=== PATIENT | male | born 1955 ===

== ENCOUNTER 2018-01-19 17:29 | Inpatient (IN) | payer MEDICARE, OTHER ==
[2018-01-19 17:29] VITALS: BMI 22.4
[2018-01-19] MEDS ORDERED: Sodium Chloride 0.9% 1,000 ML IV STA (17:58)
[2018-01-19] MEDS ORDERED: levoFLOXacin 750 mg in D5W 150 ML BAG IVPB STA (18:19)
[2018-01-19] MEDS ORDERED: Cefepime 2 GM in Sodium Chloride 0.9% 100 ML IVPB STA (18:20)
[2018-01-19 18:26] LABS: BASO # 0.1 K/uL (0.0-0.2); BASO % 0.5 % (0.0-2.0); EOS % 0.1 % (0.0-4.0); HEMOGLOBIN 12.7 g/dL (12.0-18.0); LYMPH # 1.3 K/uL (1.0-4.3); LYMPH % 11.9 % (20.0-40.0); MEAN CELL VOLUME 88.2 fl (80.0-94.0); MEAN CORPUSCULAR HEMOGLOBIN 28.6 pg (27.0-31.0); MEAN CORPUSCULAR HGB CONC 32.4 g/dL (33.0-37.0); MEAN PLATELET VOLUME 10.1 fl (7.2-11.7); MONO # 0.6 K/uL (0.0-0.8); MONO % 5.2 % (0.0-10.0); NEUT # 8.8 K/uL (1.8-7.0); NEUT % 82.3 % (50.0-75.0); RBC 4.44 Mil/uL (4.40-5.90); RED CELL DISTRIBUTION WIDTH 16.9 % (11.5-14.5); WHITE BLOOD COUNT 10.7 K/uL (4.8-10.8)
[2018-01-19 18:28] LABS: INR 1.1; PROTHROMBIN TIME 12.2 Seconds (9.8-13.1)
[2018-01-19] MEDS ORDERED: levoFLOXacin 750 mg in D5W 750 MG/150 ML BAG IVPB ONE (18:38)
--- NOTE | 2018-01-19 18:39 | ED PDOC ---
HPI: General Adult Time Seen by Provider: 01/19/18 17:40 Chief Complaint (Nursing): Shortness Of Breath Chief Complaint (Provider): Fever History Per: Other (Correction Staff) History/Exam Limitations: no limitations Onset/Duration Of Symptoms: Days (x4) Current Symptoms Are (Timing): Still Present Additional Complaint(s): 63 y/o male with a PMHx of dementia and HTN brought to the ED for decreased appetite and fever. Unable to obtain history from patient due to severe dementia. All history was obtained from Correction. Staff report patient has had a decreased appetite for four days and was found to have pneumonia on an XR and fever today. PMD: Alpesh Ontiveros Past Medical History Reviewed: Historical Data, Nursing Documentation, Vital Signs Vital Signs: Last Vital Signs Temp 97.9 F 01/20/18 15:31 Pulse 81 01/20/18 15:31 Resp 16 01/20/18 15:31 BP 112/65 01/20/18 15:31 Pulse Ox 98 01/20/18 15:31 - Medical History PMH: Alzheimer's Disease, Anxiety, Diabetes Denies: Chronic Kidney Disease - Surgical History Surgical History: No Surg Hx - Family History Family History: States: Unknown Family Hx - Living Arrangements Living Arrangements: Correction/Assist Lvng - Social History Current smoker - smoking cessation education provided: No - Immunization History Hx Tetanus Toxoid Vaccination: No (UNKNOWN) Hx Influenza Vaccination: No (UNKNOWN) Hx Pneumococcal Vaccination: No (UNKNOWN) - Home Medications Home Medications: Ambulatory Orders Medication Instructions Recorded Enalapril Maleate [Vasotec] 2.5 mg PO DAILY 12/02/16 Lovastatin 40 mg PO HS 12/02/16 metFORMIN [glucOPHAGE] 850 mg PO BID 12/02/16 Acetaminophen [Tylenol 325mg tab] 650 mg PO BID 01/19/18 Acetaminophen [Tylenol 325mg tab] 650 mg PO Q4 PRN 01/19/18 Albuterol/Ipratropium [Duoneb 3 3 ml IH Q8 01/19/18 mg/0.5 mg (3 ml) UD] Ascorbic Acid [Vitamin C 500 mg 500 mg PO DAILY 01/19/18 Tab] Bisacodyl [Dulcolax] 10 mg UT DAILY PRN 01/19/18 Donepezil [Aricept] 10 mg PO DAILY 01/19/18 Magnesium Hydroxide [Milk Of 30 ml PO HS PRN 01/19/18 Magnesia] Mirtazapine [Remeron] 7.5 mg PO HS 01/19/18 Multimineral/Multivitamin 1 tab PO DAILY 01/19/18 [Therapeutic-M Tab] guaiFENesin [Robitussin] 10 ml PO Q4 PRN 01/19/18 - Allergies Allergies/Adverse Reactions: Allergies Allergy/AdvReac Type Severity Reaction Status Date / Time No Known Allergies Allergy Verified 01/19/18 17:39 Review of Systems Review Of Systems: ROS cannot be obtained secondary to pt's inabilty to answer questions. Physical Exam - Reviewed Nursing Documentation Reviewed: Yes Vital Signs Reviewed: Yes - Physical Exam Appears: Negative for: Well (chronically ill, much older than given age and febrile), Non-toxic (cachectic) Head Exam: Positive for: ATRAUMATIC, NORMOCEPHALIC Skin: Positive for: Warm, Dry. Negative for: Normal Color (Tenting of skin on abdomen) Eye Exam: Positive for: EOMI, PERRL ENT: Positive for: Pharynx Is (clear), Other (mucus membranes dry) Neck: Positive for: Painless ROM, Supple Cardiovascular/Chest: Positive for: Regular Rate, Rhythm, Tachycardia. Negative for: Murmur Respiratory: Positive for: Normal Breath Sounds. Negative for: Respiratory Distress Gastrointestinal/Abdominal: Positive for: Bowel Sounds, Soft. Negative for: Tenderness Back: Positive for: Normal Inspection, Other (very small superficial sacral decupidis) Extremity: Positive for: Other (Poor muscle build with diffuse contractures). Negative for: Pedal Edema Lymphatic: Negative for: Adenopathy Neurologic/Psych: Positive for: Alert, Other (Awake, localizing pain equally in all extremities, non-verbal). Negative for: Oriented, Motor/Sensory Deficits - Laboratory Results Result Diagrams: 01/20/18 05:23 01/20/18 05:23 - ECG O2 Sat by Pulse Oximetry: 95 (RA) Pulse Ox Interpretation: Normal Medical Decision Making Medical Decision Making: Time: 1814 Plan: -- VBG -- EKG -- CMP -- Lipase -- Magnesium -- Phosphorus -- Troponin I -- CBC with differentials -- PTT -- Prothrombin Time -- CXR Portable -- Levaquin 750 mg IVPB -- Maxipime 2 gm Sodium Chloride 0.9% 100 ml IVPB -- Sodium Chloride 1000 mls/hr -- Tylenol 650 mg UT -- Blood Culture -- Urine Culture -- Case Operator -- IV Insertion -- Glucose, Blood, POC -- Jimenez -- Urinalysis Labs demonstrate marked hypernatremia and dehydration. CXR demonstrates pneumonia Calculated infusion for correction and 0.45NS IV infusions ordered. IV antibiotics ordered. DW Dr Ontiveros PMD Scribe Attestation: Documented by Vadim Mauricio acting as a scribe for Dr. Bonnie Nixon. Provider Scribe Attestation: All medical record entries made by the Scribe were at my direction and personally dictated by me. I have reviewed the chart and agree that the record accurately reflects my personal performance of the history, physical exam, medical decision making, and the department course for this patient. I have also personally directed, reviewed, and agree with the discharge instructions and disposition. Disposition - Clinical Impression Clinical Impression: Hypernatremia, Dehydration with hypernatremia, Pneumonia - Disposition Disposition Time: 19:00 Condition: FAIR - Pt Status Changed To: Hospital Disposition Of: Inpatient - Admit Certification Admit to Inpatient:: After my assessment, the patient will require hospitalization for at least two midnights. This is because of the severity of symptoms shown, intensity of services needed, and/or the medical risk in this patient being treated as an outpatient. - POA Present On Arrival: Falls Or Trauma (risk), Pressure Ulcer
[2018-01-19 18:48] LABS: VENOUS BLOOD GAS BASE EXCESS 8.8 mmol/L (0.0-2.0); VENOUS BLOOD GAS PCO2 51 mmHg (40-60); VENOUS BLOOD GAS PO2 38 mm/Hg (30-55); VENOUS BLOOD PH 7.44 (7.32-7.43)
[2018-01-19 18:59] LABS: SQUAMOUS EPITHIAL < 1 /hpf (0-5); URINE BILIRUBIN NEGATIVE (NEGATIVE); URINE BLOOD MODERATE (NEGATIVE); URINE CLARITY SLIGHTY-CLOUDY (Clear); URINE COLOR YELLOW (YELLOW); URINE GLUCOSE (UA) NEG (Normal); URINE LEUKOCYTE ESTERASE NEG Leu/uL (Negative); URINE PROTEIN 100 mg/dL (NEGATIVE)
[2018-01-19 19:01] LABS: ALBUMIN 3.8 g/dL (3.5-5.0); ALT/SGPT 19 U/L (21-72); AST/SGOT 20 U/L (17-59); BLOOD UREA NITROGEN 40 mg/dl (9-20); CALCIUM 9.9 mg/dL (8.4-10.2); GFR AFRICAN-AMERICAN > 60; GFR NON-AFRICAN AMERICAN > 60; LIPASE 58 U/L (23-300)
[2018-01-19] MEDS ORDERED: Sodium Chloride 0.45% 1,000 ML IV STA (19:21)
[2018-01-20] MEDS: Sodium Chloride 0.45% 1,000 ML IV SCH ×3 (02:31→22:07)
[2018-01-20 05:35] LABS: HEMOGLOBIN 9.3 g/dL (12.0-18.0); MEAN CELL VOLUME 90.1 fl (80.0-94.0); MEAN CORPUSCULAR HEMOGLOBIN 28.4 pg (27.0-31.0); MEAN CORPUSCULAR HGB CONC 31.6 g/dL (33.0-37.0); RBC 3.28 Mil/uL (4.40-5.90); RED CELL DISTRIBUTION WIDTH 17.2 % (11.5-14.5); WHITE BLOOD COUNT 12.5 K/uL (4.8-10.8)
[2018-01-20 05:43] LABS: INR 1.2; PROTHROMBIN TIME 13.7 Seconds (9.8-13.1)
[2018-01-20 05:46] LABS: PARTIAL THROMBOPLASTIN TIME 41.6 Seconds (25.6-37.1)
[2018-01-20 05:53] LABS: ALB/GLOB RATIO 0.9 (1.0-2.1); ALBUMIN 2.9 g/dL (3.5-5.0); ALT/SGPT 18 U/L (21-72); AST/SGOT 17 U/L (17-59); BLOOD UREA NITROGEN 30 mg/dl (9-20); CALCIUM 8.6 mg/dL (8.4-10.2); GFR AFRICAN-AMERICAN > 60; GFR NON-AFRICAN AMERICAN > 60; HDL CHOLESTEROL 20 MG/DL (30-70)
[2018-01-20 06:02] LABS: T4 6.87 ug/dl (5.5-11.0)
[2018-01-20 06:33] LABS: LDL CHOLESTEROL < 30 mg/dL (0-129)
--- NOTE | 2018-01-20 07:21 | CARD ---
APPROVED REPORT Date of service: 01/19/2018 <Conclusion> Sinus tachycardia Nonspecific ST and T wave abnormality Abnormal ECG
[2018-01-20] MEDS ORDERED: Albuterol-Ipratrop 3 mg / 0.5 (3 ml) UD IH SCH (08:00)
--- NOTE | 2018-01-20 08:06 | RAD ---
Date of service: 01/19/2018 HISTORY: sepsis COMPARISON: No prior. FINDINGS: LUNGS: Limited patchy infiltrates identified in the bilateral basilar lung zones right greater than left. PLEURA: No significant pleural effusion identified, no pneumothorax apparent. CARDIOVASCULAR: Normal. OSSEOUS STRUCTURES: No significant abnormalities. VISUALIZED UPPER ABDOMEN: Normal. OTHER FINDINGS: None. IMPRESSION: Limited bilateral basilar infiltrates, right greater than left.
[2018-01-20] MEDS: Albuterol-Ipratrop 3 mg / 0.5 (3 ml) UD INH SCH ×3 (08:19→19:22)
[2018-01-20] MEDS: Insulin Regular 100 units/ml SC SCH ×4 (08:45→22:06)
[2018-01-20] MEDS ORDERED: Sodium Chloride 3% for Inhalation 4 ML VIAL.NEB IH PRN (09:19)
[2018-01-20] MEDS: Enoxaparin 40 mg Syringe SC SCH (14:07)
[2018-01-20] MEDS: Azithromycin 500 MG in Sodium Chloride 0.9% 250 ML IVPB SCH (14:09)
--- NOTE | 2018-01-20 14:44 | CP.PCM.HP ---
History of Present Illness - History of Present Illness History of Present Illness: CC: SOB. 63 y/o M, resident at [facility], Hx Dentia/Alzheimers, brought on 02/09/18 to ER [facility] to be evaluated gradually increased moderate SOB x 4 days [employer], no cough associated but fever and lack of appetite with no relief of symptoms. [facility]. Worsening symptom: Found with PNA on Chest X-R while in NH. Aggravated factor: Limited medical Hx. Non verbal baseline. No: Chills, n/v/d, abdominal pain, syncope, fall/trauma, CP, palpitations, sick contact. CXR: + bibasilar infiltrates R>L. Present on Admission - Present on Admission Any Indicators Present on Admission: No Review of Systems - Review of Systems Systems not reviewed;Unavailable: Acuity of Condition, Dementia (Non -verbal) Past Patient History - Past Medical History & Family History Past Medical History?: Yes Pertinent Family History: Unknown - Past Social History Smoking Status: Never Smoked Alcohol: None Drugs: Denies Home Situation {Lives}: [facility] - CARDIAC Hx Cardiac Disorders: Yes Hx Hypertension: Yes - PULMONARY Hx Respiratory Disorders: No - NEUROLOGICAL Hx Neurological Disorder: Yes Hx Alzheimer's Disease: Yes Hx Dementia: Yes - HEENT Hx HEENT Problems: No - RENAL Hx Chronic Kidney Disease: No - ENDOCRINE/METABOLIC Hx Endocrine Disorders: Yes Hx Diabetes Mellitus Type 2: Yes - HEMATOLOGICAL/ONCOLOGICAL Hx Blood Disorders: No Hx AIDS: No Hx Human Immunodeficiency Virus (HIV): No - INTEGUMENTARY Hx Dermatological Problems: No - MUSCULOSKELETAL/RHEUMATOLOGICAL Hx Musculoskeletal Disorders: No Hx Falls: No - GASTROINTESTINAL Hx Gastrointestinal Disorders: No - GENITOURINARY/GYNECOLOGICAL Hx Genitourinary Disorders: Yes Hx Incontinence: Yes - PSYCHIATRIC Hx Psychophysiologic Disorder: Yes Hx Anxiety: Yes Hx Substance Use: No - SURGICAL HISTORY Hx Surgeries: No (UNKNOWN) - ANESTHESIA Hx Anesthesia: No (UNKNOWN) Meds Allergies/Adverse Reactions: Allergies Allergy/AdvReac Type Severity Reaction Status Date / Time No Known Allergies Allergy Verified 01/19/18 17:39 Physical Exam - Constitutional Appears: Chronically Ill - Head Exam Head Exam: NORMAL INSPECTION - Eye Exam Eye Exam: PERRL - ENT Exam ENT Exam: Normal Exam - Neck Exam Neck exam: Positive for: Normal Inspection - Respiratory Exam Respiratory Exam: Decreased Breath Sounds (at bases) - Cardiovascular Exam Cardiovascular Exam: REGULAR RHYTHM - GI/Abdominal Exam GI & Abdominal Exam: Normal Bowel Sounds, Soft - Exam Additional comments: Lina Monica catheter - Extremities Exam Additional comments: All extremities contracted - Back Exam Additional comments: Sacral pressure ulcer unstagable - Neurological Exam Additional comments: Eyes open to verbal and tactile stimuli, receptive aphasia, unable to follows commands. Generalized weakness. - Skin Skin Exam: Dry, Warm Results - Vital Signs Recent Vital Signs: Last Vital Signs Temp 97.8 F 01/20/18 12:00 Pulse 77 01/20/18 12:00 Resp 18 01/20/18 12:00 BP 94/61 L 01/20/18 12:00 Pulse Ox 99 01/20/18 12:00 reviewed Twila - Labs Result Diagrams: 01/21/18 05:51 01/21/18 05:51 Labs: Laboratory Results - last 24 hr 01/19/18 01/19/18 01/19/18 17:49 18:15 18:15 WBC 10.7 RBC 4.44 Hgb 12.7 Hct 39.1 MCV 88.2 MCH 28.6 MCHC 32.4 L RDW 16.9 H Plt Count 251 MPV 10.1 Neut % (Auto) 82.3 H Lymph % (Auto) 11.9 L [place] % (Auto) 5.2 Eos % (Auto) 0.1 Baso % (Auto) 0.5 Neut # (Auto) 8.8 H Lymph # (Auto) 1.3 [place] # (Auto) 0.6 Eos # (Auto) 0.0 Baso # (Auto) 0.1 PT INR APTT pO2 VBG pH VBG pCO2 VBG HCO3 VBG Total CO2 VBG O2 Sat (Calc) VBG Base Excess VBG Potassium Glucose Lactate FiO2 Crit Value Called To Crit Value Called By Crit Value Read Back Blood Gas Notified Time Sodium 162 H* Potassium 3.7 Chloride 120 H Carbon Dioxide 34 H Anion Gap 12 BUN 40 H Creatinine 0.9 Est GFR ( Amer) > 60 Est GFR (Non-Af Amer) > 60 POC Glucose (mg/dL) 212 H Random Glucose 210 H Hemoglobin A1c Calcium 9.9 Phosphorus 2.6 Magnesium 2.3 Total Bilirubin 0.8 AST 20 ALT 19 L Alkaline Phosphatase 87 Troponin I < 0.0120 Total Protein 7.4 Albumin 3.8 Globulin 3.6 Albumin/Globulin Ratio 1.0 Triglycerides Cholesterol LDL Cholesterol Direct HDL Cholesterol Lipase 58 Thyroxine (T4) TSH 3rd Generation Venous Blood Potassium Urine Color Urine Clarity Urine pH Ur Specific [place] Urine Protein Urine Glucose (UA) Urine Ketones Urine Blood Urine Nitrate Urine Bilirubin Urine Urobilinogen Ur Leukocyte Esterase Urine RBC (Auto) Urine Microscopic WBC Ur Squamous Epith Cells 01/19/18 01/19/18 01/19/18 18:15 18:32 18:40 WBC RBC Hgb Hct MCV MCH MCHC RDW Plt Count MPV Neut % (Auto) Lymph % (Auto) [place] % (Auto) Eos % (Auto) Baso % (Auto) Neut # (Auto) Lymph # (Auto) [place] # (Auto) Eos # (Auto) Baso # (Auto) PT 12.2 INR 1.1 APTT 42.0 H pO2 38 VBG pH 7.44 H VBG pCO2 51 VBG HCO3 31.2 VBG Total CO2 36.2 H VBG O2 Sat (Calc) 77.4 H VBG Base Excess 8.8 H VBG Potassium 3.9 Glucose 214 H Lactate 1.7 FiO2 21.0 Crit Value Called To eva Nixon md Crit Value Called By Abraham vieyra Crit Value Read Back Y Blood Gas Notified Time 1848 Sodium 162.0 H* Potassium Chloride 122.0 H Carbon Dioxide Anion Gap BUN Creatinine Est GFR ( Amer) Est GFR (Non-Af Amer) POC Glucose (mg/dL) Random Glucose Hemoglobin A1c Calcium Phosphorus Magnesium Total Bilirubin AST ALT Alkaline Phosphatase Troponin I Total Protein Albumin Globulin Albumin/Globulin Ratio Triglycerides Cholesterol LDL Cholesterol Direct HDL Cholesterol Lipase Thyroxine (T4) TSH 3rd Generation Venous Blood Potassium 3.9 Urine Color Yellow Urine Clarity Slighty-cloudy Urine pH 5.0 Ur Specific [place] 1.030 Urine Protein 100 Urine Glucose (UA) Neg Urine Ketones 20 Urine Blood Moderate Urine Nitrate Negative Urine Bilirubin Negative Urine Urobilinogen 2.0 Ur Leukocyte Esterase Neg Urine RBC (Auto) 98 H Urine Microscopic WBC 4 Ur Squamous Epith Cells < 1 01/20/18 01/20/18 01/20/18 04:32 05:23 05:23 WBC 12.5 H RBC 3.28 L Hgb 9.3 L D Hct 29.5 L MCV 90.1 MCH 28.4 MCHC 31.6 L RDW 17.2 H Plt Count 214 MPV Neut % (Auto) Lymph % (Auto) Mer[place] % (Auto) Eos % (Auto) Baso % (Auto) Neut # (Auto) Lymph # (Auto) [place] # (Auto) Eos # (Auto) Baso # (Auto) PT 13.7 H INR 1.2 APTT 41.6 H pO2 VBG pH VBG pCO2 VBG HCO3 VBG Total CO2 VBG O2 Sat (Calc) VBG Base Excess VBG Potassium Glucose Lactate FiO2 Crit Value Called To Crit Value Called By Crit Value Read Back Blood Gas Notified Time Sodium Potassium Chloride Carbon Dioxide Anion Gap BUN Creatinine Est GFR ( Amer) Est GFR (Non-Af Amer) POC Glucose (mg/dL) 161 H Random Glucose Hemoglobin A1c Calcium Phosphorus Magnesium Total Bilirubin AST ALT Alkaline Phosphatase Troponin I Total Protein Albumin Globulin Albumin/Globulin Ratio Triglycerides Cholesterol LDL Cholesterol Direct HDL Cholesterol Lipase Thyroxine (T4) TSH 3rd Generation Venous Blood Potassium Urine Color Urine Clarity Urine pH Ur Specific [place] Urine Protein Urine Glucose (UA) Urine Ketones Urine Blood Urine Nitrate Urine Bilirubin Urine Urobilinogen Ur Leukocyte Esterase Urine RBC (Auto) Urine Microscopic WBC Ur Squamous Epith Cells 01/20/18 01/20/18 01/20/18 05:23 05:23 11:27 WBC RBC Hgb Hct MCV MCH MCHC RDW Plt Count MPV Neut % (Auto) Lymph % (Auto) [place] % (Auto) Eos % (Auto) Baso % (Auto) Neut # (Auto) Lymph # (Auto) [place] # (Auto) Eos # (Auto) Baso # (Auto) PT INR APTT pO2 VBG pH VBG pCO2 VBG HCO3 VBG Total CO2 VBG O2 Sat (Calc) VBG Base Excess VBG Potassium Glucose Lactate FiO2 Crit Value Called To Crit Value Called By Crit Value Read Back Blood Gas Notified Time Sodium 158 H Potassium 3.5 L Chloride 119 H Carbon Dioxide 31 H Anion Gap 12 BUN 30 H Creatinine 0.8 Est GFR ( Amer) > 60 Est GFR (Non-Af Amer) > 60 POC Glucose (mg/dL) 128 H Random Glucose 162 H Hemoglobin A1c 6.0 Calcium 8.6 Phosphorus 1.9 L Magnesium Total Bilirubin 0.9 AST 17 ALT 18 L Alkaline Phosphatase 71 Troponin I Total Protein 6.0 L Albumin 2.9 L D Globulin 3.1 Albumin/Globulin Ratio 0.9 L Triglycerides 150 H Cholesterol 85 LDL Cholesterol Direct < 30 HDL Cholesterol 20 L Lipase Thyroxine (T4) 6.87 TSH 3rd Generation 0.18 L Venous Blood Potassium Urine Color Urine Clarity Urine pH Ur Specific [place] Urine Protein Urine Glucose (UA) Urine Ketones Urine Blood Urine Nitrate Urine Bilirubin Urine Urobilinogen Ur Leukocyte Esterase Urine RBC (Auto) Urine Microscopic WBC Ur Squamous Epith Cells reviewed J.P. - Impressions Impression: Reviewed J.P. - Imaging and Cardiology Chest x-ray Status: Report reviewed by me (Twila) Assessment & Plan (1) Pneumonia Status: Acute Priority: High (2) Dehydration with hypernatremia Status: Acute Priority: High (3) Dementia Status: Chronic Priority: High (4) Diabetes mellitus Status: Chronic Priority: Medium - Assessment and Plan (Free Text) Plan: F/U CT Chest, Sputum C-S, continue NC O2 2 L/M, Zithromax, Rocephin, Duoneb, IV fluid and rest of Tx. PT, OT , Speech and Swallow eval. - Date & Time Date: 01/20/18 Time: 14:20
--- NOTE | 2018-01-20 17:55 | CT ---
Date of service: 01/20/2018 PROCEDURE: CT Chest without contrast HISTORY: Pneumonia COMPARISON: None available. TECHNIQUE: Contiguous axial images were obtained through the chest without intravenous contrast enhancement. Sagittal and coronal reconstructions were performed. Radiation dose (DLP): 160.51 mGy-cm. This CT exam was performed using one or more of the following dose reduction techniques: Automated exposure control, adjustment of the mA and/or kV according to patient size, and/or use of iterative reconstruction technique. FINDINGS: LUNGS: Right lower lobe consolidation. Widespread small airways disease throughout the right lower lobe manifested as tree-in-bud appearance. There is also small airways disease seen in the left lower lobe. Please note that evaluation of the lung parenchyma is limited by respiratory motion artifact. Pleural-based 11 mm mass in the apical posterior left upper lobe. Pleural-based 15 mm mass in the anterior basal left lower lobe. Suspicious for neoplasm, possible metastatic disease. MEDIASTINUM: Unremarkable thoracic aorta. No aneurysm. Normal sized heart. Main pulmonary artery unremarkable. No vascular congestion. No lymphadenopathy. PLEURA: No pleural fluid. No pneumothorax. BONES: No fracture. No destructive lesion. UPPER ABDOMEN: Grossly unremarkable. OTHER FINDINGS: None. IMPRESSION: Right lower lobe consolidation. Bilateral lower lobe nonspecific small airways disease. Possibly infectious or inflammatory. 2 left lung masses, 11 mm and 15 mm. Concerning for malignancy. Further evaluation is advised.
[2018-01-21] MEDS: Insulin Regular 100 units/ml SC SCH ×4 (06:04→22:19)
[2018-01-21 07:18] LABS: HEMOGLOBIN 9.7 g/dL (12.0-18.0); MEAN CELL VOLUME 88.5 fl (80.0-94.0); MEAN CORPUSCULAR HEMOGLOBIN 29.2 pg (27.0-31.0); RBC 3.32 Mil/uL (4.40-5.90); RED CELL DISTRIBUTION WIDTH 16.8 % (11.5-14.5); WHITE BLOOD COUNT 10.7 K/uL (4.8-10.8)
[2018-01-21 07:39] LABS: BLOOD UREA NITROGEN 20 mg/dl (9-20); CALCIUM 8.4 mg/dL (8.4-10.2); GFR AFRICAN-AMERICAN > 60; GFR NON-AFRICAN AMERICAN > 60
[2018-01-21] MEDS: Albuterol-Ipratrop 3 mg / 0.5 (3 ml) UD INH SCH ×3 (07:41→19:36)
[2018-01-21] MEDS: Enoxaparin 40 mg Syringe SC SCH (09:09)
[2018-01-21] MEDS: Azithromycin 500 MG in Sodium Chloride 0.9% 250 ML IVPB SCH (09:10)
--- NOTE | 2018-01-21 14:41 | CP.PCM.PN ---
Subjective - Date & Time of Evaluation Date of Evaluation: 01/21/18 Time of Evaluation: 11:40 - Subjective Subjective: F/U PNA Awake, no A/D, open eyes, unable to follows commands. Objective - Vital Signs/Intake and Output Vital Signs (last 24 hours): Temp Pulse Resp BP Pulse Ox 97.9 F 58 L 19 100/64 100 01/21/18 12:34 01/21/18 12:34 01/21/18 12:34 01/21/18 12:34 01/21/18 12:34 - Medications Medications: Current Medications Albuterol/Ipratropium (Duoneb 3 Mg/0.5 Mg (3 Ml) Ud) 3 ml INH RTID ELIECER Last Admin: 01/21/18 13:47 Dose: 3 ml Enoxaparin Sodium (Lovenox) 40 mg SC DAILY ELIECER PRN Reason: Protocol Last Admin: 01/21/18 09:09 Dose: 40 mg Ceftriaxone Sodium 1 gm/ (Sodium Chloride) 100 mls @ 100 mls/hr IVPB DAILY ELIECER PRN Reason: Protocol Last Admin: 01/21/18 09:09 Dose: 100 mls/hr Azithromycin 500 mg/ Sodium (Chloride) 250 mls @ 250 mls/hr IVPB DAILY ELIECER PRN Reason: Protocol Last Admin: 01/21/18 09:10 Dose: 250 mls/hr Sodium Chloride (Sodium Chloride 0.45%) 1,000 mls @ 100 mls/hr IV .Q10H ELIECER Stop: 01/22/18 14:21 Insulin Human Regular (Humulin R) 0 units SC ACCU-CHECK ELIECER PRN Reason: Protocol Last Admin: 01/21/18 11:27 Dose: Not Given - Labs Labs: 01/21/18 05:51 01/21/18 05:51 PT 13.7 Seconds (9.8-13.1) H 01/20/18 05:23 INR 1.2 01/20/18 05:23 APTT 41.6 Seconds (25.6-37.1) H 01/20/18 05:23 - Constitutional Appears: Chronically Ill - Head Exam Head Exam: NORMAL INSPECTION - Eye Exam Eye Exam: PERRL - ENT Exam ENT Exam: Normal Exam - Neck Exam Neck Exam: Normal Inspection - Respiratory Exam Respiratory Exam: Decreased Breath Sounds (at bases) - Cardiovascular Exam Cardiovascular Exam: REGULAR RHYTHM - GI/Abdominal Exam GI & Abdominal Exam: Soft, Normal Bowel Sounds - Exam Additional comments: Catheter in place - Extremities Exam Additional comments: All extremities contracted - Back Exam Additional comments: Sacral pressure ulcer unstagable - Neurological Exam Additional comments: Eyes open to tactile and verbal stimuli, receptive aphasia, unable to follows commands, generalized weakness. - Skin Skin Exam: Dry, Warm Assessment and Plan (1) Pneumonia Status: Acute (2) Dehydration with hypernatremia Status: Acute (3) Dementia Status: Chronic (4) Diabetes mellitus Status: Chronic - Assessment and Plan (Free Text) Plan: CT Chest: RLL consolidation, b/l small airway disease, 2 Left lung masses, concerning for malignancy. Continue O2 NC, Zithromax, Rocephin and rest of Tx.
[2018-01-21] MEDS: Sodium Chloride 0.45% 1,000 ML IV SCH (16:17)
[2018-01-22] MEDS: Sodium Chloride 0.45% 1,000 ML IV SCH (02:01)
[2018-01-22] MEDS: Insulin Regular 100 units/ml SC SCH ×3 (06:04→16:11)
[2018-01-22] MEDS: Albuterol-Ipratrop 3 mg / 0.5 (3 ml) UD INH SCH ×3 (07:45→19:50)
[2018-01-22] MEDS: Enoxaparin 40 mg Syringe SC SCH (09:04)
[2018-01-22] MEDS: Azithromycin 500 MG in Sodium Chloride 0.9% 250 ML IVPB SCH (09:06)
--- NOTE | 2018-01-22 14:06 | CP.PCM.PN ---
Subjective - Date & Time of Evaluation Date of Evaluation: 01/22/18 Time of Evaluation: 14:00 - Subjective Subjective: F/U PNA no AD, non verbal, not following comands Objective - Vital Signs/Intake and Output Vital Signs (last 24 hours): Temp Pulse Resp BP Pulse Ox 98.4 F 76 20 112/65 96 01/22/18 12:00 01/22/18 12:00 01/22/18 12:00 01/22/18 12:00 01/22/18 12:00 - Medications Medications: Current Medications Albuterol/Ipratropium (Duoneb 3 Mg/0.5 Mg (3 Ml) Ud) 3 ml INH RTID [facility] Last Admin: 01/22/18 13:20 Dose: 3 ml Enoxaparin Sodium (Lovenox) 40 mg SC DAILY ELIECER PRN Reason: Protocol Last Admin: 01/22/18 09:04 Dose: 40 mg Ceftriaxone Sodium 1 gm/ (Sodium Chloride) 100 mls @ 100 mls/hr IVPB DAILY ELIECER PRN Reason: Protocol Last Admin: 01/22/18 09:06 Dose: 100 mls/hr Azithromycin 500 mg/ Sodium (Chloride) 250 mls @ 250 mls/hr IVPB DAILY ELIECER PRN Reason: Protocol Last Admin: 01/22/18 09:06 Dose: 250 mls/hr Sodium Chloride (Sodium Chloride 0.45%) 1,000 mls @ 100 mls/hr IV .Q10H ELIECER Stop: 01/22/18 14:21 Last Admin: 01/22/18 02:01 Dose: 100 mls/hr Insulin Human Regular (Humulin R) 0 units SC ACCU-CHECK ELIECER PRN Reason: Protocol Last Admin: 01/22/18 11:35 Dose: Not Given - Labs Labs: 01/21/18 05:51 01/21/18 05:51 PT 13.7 Seconds (9.8-13.1) H 01/20/18 05:23 INR 1.2 01/20/18 05:23 APTT 41.6 Seconds (25.6-37.1) H 01/20/18 05:23 - Constitutional Appears: Chronically Ill - Head Exam Head Exam: NORMAL INSPECTION - Eye Exam Eye Exam: PERRL - ENT Exam ENT Exam: Normal Exam - Neck Exam Neck Exam: Normal Inspection - Respiratory Exam Respiratory Exam: Decreased Breath Sounds (at bases) - Cardiovascular Exam Cardiovascular Exam: REGULAR RHYTHM - GI/Abdominal Exam GI & Abdominal Exam: Soft, Normal Bowel Sounds - Exam Additional comments: [place] catheter in place. - Extremities Exam Additional comments: contracted - Back Exam Additional comments: redness Scral areas, healed scar to buttocks - Neurological Exam Additional comments: Eyes open to tactile stimuli, receptive aphasia, unable to follows commands. - Skin Skin Exam: Dry, Warm Assessment and Plan (1) Pneumonia Status: Acute (2) Dehydration with hypernatremia Status: Acute (3) Dementia Status: Chronic (4) Diabetes mellitus Status: Chronic - Assessment and Plan (Free Text) Plan: Continue Duoneb, Sodium Chl, Humalin R and rest of Tx.
[2018-01-22] MEDS: Dextrose 5%/0.45% NS 1,000 ML IV SCH (21:30)
[2018-01-23] MEDS: Insulin Regular 100 units/ml SC SCH ×5 (01:13→23:05)
[2018-01-23] MEDS: Dextrose 5%/0.45% NS 1,000 ML IV SCH ×2 (07:51→21:16)
[2018-01-23] MEDS: Albuterol-Ipratrop 3 mg / 0.5 (3 ml) UD INH SCH ×2 (07:55→19:54)
[2018-01-23] MEDS: Enoxaparin 40 mg Syringe SC SCH (08:27)
[2018-01-23] MEDS: Azithromycin 500 MG in Sodium Chloride 0.9% 250 ML IVPB SCH ×2 (08:27→10:47)
--- NOTE | 2018-01-23 13:36 | CP.PCM.PN ---
Subjective - Date & Time of Evaluation Date of Evaluation: 01/23/18 Time of Evaluation: 10:35 - Subjective Subjective: F/U PNA no AD,non verbal, not following commands Objective - Vital Signs/Intake and Output Vital Signs (last 24 hours): Temp Pulse Resp BP Pulse Ox 97.9 F 102 H 20 121/67 99 01/23/18 08:00 01/23/18 09:00 01/23/18 08:00 01/23/18 08:00 01/23/18 08:00 Intake and Output: 01/23/18 01/23/18 06:59 18:59 Intake Total 550 Balance 550 - Medications Medications: Current Medications Albuterol/Ipratropium (Duoneb 3 Mg/0.5 Mg (3 Ml) Ud) 3 ml INH RTID ELIECER Last Admin: 01/23/18 07:55 Dose: 3 ml Dextrose/Sodium Chloride (Dextrose 5%/0.45% Ns 1000 Ml) 1,000 mls @ 100 mls/hr IV .Q10H ELIECER Stop: 01/23/18 21:18 Last Admin: 01/23/18 07:51 Dose: 100 mls/hr Ceftriaxone Sodium 1 gm/ (Sodium Chloride) 100 mls @ 100 mls/hr IVPB DAILY [facility]ER PRN Reason: Protocol Last Admin: 01/23/18 10:47 Dose: Not Given Azithromycin 500 mg/ Sodium (Chloride) 250 mls @ 250 mls/hr IVPB DAILY [facility]ER PRN Reason: Protocol Last Admin: 01/23/18 10:47 Dose: Not Given Insulin Human Regular (Humulin R) 0 units SC ACCU-CHECK ELIECER PRN Reason: Protocol Last Admin: 01/23/18 11:31 Dose: 1 unit - Labs Labs: 01/21/18 05:51 01/21/18 05:51 PT 13.7 Seconds (9.8-13.1) H 01/20/18 05:23 INR 1.2 01/20/18 05:23 APTT 41.6 Seconds (25.6-37.1) H 01/20/18 05:23 - Constitutional Appears: Chronically Ill - Head Exam Head Exam: NORMAL INSPECTION - Eye Exam Eye Exam: PERRL - ENT Exam ENT Exam: Normal Exam - Neck Exam Neck Exam: Normal Inspection - Respiratory Exam Respiratory Exam: Decreased Breath Sounds (at bases) - Cardiovascular Exam Cardiovascular Exam: REGULAR RHYTHM - GI/Abdominal Exam GI & Abdominal Exam: Soft, Normal Bowel Sounds - Exam Additional comments: [place] catheter in place - Extremities Exam Additional comments: Contracted all extremities - Back Exam Additional comments: redness Sacral area, healed scar to buttocks - Neurological Exam Additional comments: Eyes open to verbal and tactile stimuli, non verbal, unable to follows commands , generalized weakness. - Psychiatric Exam Additional comments: non verbal, not following commands, calm - Skin Skin Exam: Normal Color, Warm Assessment and Plan (1) Pneumonia Status: Acute (2) Dehydration with hypernatremia Status: Acute (3) Dementia Status: Chronic (4) Diabetes mellitus Status: Chronic - Assessment and Plan (Free Text) Plan: Discussed with Patient's family, They want PEG tube insertion, GI consult, continue Zithromax, Rocephin, DuoNeb, f/u PT-INR-PTT
[2018-01-24 05:51] LABS: HEMOGLOBIN 9.1 g/dL (12.0-18.0); MEAN CELL VOLUME 86.6 fl (80.0-94.0); MEAN CORPUSCULAR HEMOGLOBIN 28.8 pg (27.0-31.0); MEAN CORPUSCULAR HGB CONC 33.3 g/dL (33.0-37.0); RBC 3.15 Mil/uL (4.40-5.90); RED CELL DISTRIBUTION WIDTH 16.3 % (11.5-14.5); WHITE BLOOD COUNT 7.7 K/uL (4.8-10.8)
[2018-01-24 06:28] LABS: BLOOD UREA NITROGEN < 2 mg/dl (9-20); CALCIUM 7.7 mg/dL (8.4-10.2); GFR AFRICAN-AMERICAN > 60; GFR NON-AFRICAN AMERICAN > 60
[2018-01-24] MEDS: Insulin Regular 100 units/ml SC SCH ×4 (07:42→22:24)
[2018-01-24] MEDS: Albuterol-Ipratrop 3 mg / 0.5 (3 ml) UD INH SCH ×3 (08:00→19:30)
[2018-01-24] MEDS: Potassium CL 10 MEQ/50 ML 50 ML IVPB SCH ×4 (09:35→12:44)
[2018-01-24] MEDS ORDERED: Dextrose 50% SYRINGE Inj (50 ml) IVP STA (11:18)
--- NOTE | 2018-01-24 13:33 | CP.PCM.PN ---
Subjective - Date & Time of Evaluation Date of Evaluation: 01/24/18 Time of Evaluation: 13:30 - Subjective Subjective: F/U PNA No A/D, non verbal. Objective - Vital Signs/Intake and Output Vital Signs (last 24 hours): Temp Pulse Resp BP Pulse Ox 98.1 F 103 H 20 116/76 100 01/24/18 12:55 01/24/18 12:55 01/24/18 12:55 01/24/18 12:55 01/24/18 12:55 - Medications Medications: Current Medications Albuterol/Ipratropium (Duoneb 3 Mg/0.5 Mg (3 Ml) Ud) 3 ml INH RTID ELIECER Last Admin: 01/24/18 13:26 Dose: 3 ml Ceftriaxone Sodium 1 gm/ (Sodium Chloride) 100 mls @ 100 mls/hr IVPB DAILY ELIECER PRN Reason: Protocol Last Admin: 01/23/18 10:47 Dose: Not Given Azithromycin 500 mg/ Sodium (Chloride) 250 mls @ 250 mls/hr IVPB DAILY ELIECER PRN Reason: Protocol Last Admin: 01/23/18 10:47 Dose: Not Given Potassium Chloride/Dextrose/Sod Cl (Potassium Chl 20 Meq In D5-Ns) 1,000 mls @ 75 mls/hr IV .[id number] ELIECER Stop: 01/25/18 11:19 Insulin Human Regular (Humulin R) 0 units SC ACCU-CHECK ELIECER PRN Reason: Protocol Last Admin: 01/24/18 12:44 Dose: Not Given - Labs Labs: 01/24/18 04:20 01/24/18 04:20 PT 13.7 Seconds (9.8-13.1) H 01/20/18 05:23 INR 1.2 01/20/18 05:23 APTT 41.6 Seconds (25.6-37.1) H 01/20/18 05:23 - Constitutional Appears: No Acute Distress, Chronically Ill - Head Exam Head Exam: NORMAL INSPECTION - Eye Exam Eye Exam: PERRL - ENT Exam ENT Exam: Normal Exam - Neck Exam Neck Exam: Normal Inspection - Respiratory Exam Respiratory Exam: Decreased Breath Sounds (at bases) - Cardiovascular Exam Cardiovascular Exam: REGULAR RHYTHM - GI/Abdominal Exam GI & Abdominal Exam: Soft, Normal Bowel Sounds - Exam Additional comments: [place] Catheter in place - Extremities Exam Additional comments: Contracted all extremities - Neurological Exam Neurological Exam: Awake Additional comments: Non verbal, not following commands, generalized weakness. - Psychiatric Exam Additional comments: Calm - Skin Skin Exam: Normal Color, Warm Assessment and Plan (1) Pneumonia Status: Acute (2) Dehydration with hypernatremia Status: Resolved (3) Dementia Status: Chronic (4) Diabetes mellitus Status: Chronic (5) Hypokalemia Status: Acute - Assessment and Plan (Free Text) Plan: Continue Zithromax, Ceftriaxone, Duoneb and rest of Tx, Peg tube insertion
[2018-01-24] MEDS: Azithromycin 500 MG in Sodium Chloride 0.9% 250 ML IVPB SCH (14:54)
[2018-01-24] MEDS: Potassium Chl 20 mEq in D5-NS 1,000 ML IV SCH (15:56)
[2018-01-25] MEDS: Potassium Chl 20 mEq in D5-NS 1,000 ML IV SCH ×2 (00:35→20:52)
[2018-01-25 06:21] LABS: BLOOD UREA NITROGEN < 2 mg/dl (9-20); CALCIUM 7.9 mg/dL (8.4-10.2); GFR AFRICAN-AMERICAN > 60; GFR NON-AFRICAN AMERICAN > 60
[2018-01-25] MEDS: Insulin Regular 100 units/ml SC SCH ×4 (06:27→22:05)
[2018-01-25] MEDS: Albuterol-Ipratrop 3 mg / 0.5 (3 ml) UD INH SCH ×3 (07:45→19:38)
[2018-01-25] MEDS: Azithromycin 500 MG in Sodium Chloride 0.9% 250 ML IVPB SCH (08:33)
[2018-01-25] MEDS: Potassium CL 10 MEQ/50 ML 50 ML IVPB SCH ×2 (11:40→12:45)
--- NOTE | 2018-01-25 12:29 | RAD ---
Date of service: 01/25/2018 PROCEDURE: CHEST RADIOGRAPH, 1 VIEW HISTORY: PNA COMPARISON: 01/19/2018 chest x-ray FINDINGS: LUNGS: Lung volumes shallow Vague opacities at each lung base are noted please note the prior CT chest report for findings referencing PLEURA: Bilateral pleural effusions present the vertically oriented soft tissue edges over each lateral hemithorax are probably due to skin folds. . Is difficult to well visualized markings however beyond the left soft tissue edges in the left mid lung zone. Recommend repeat up right view with less rotation. CARDIOVASCULAR: Heart size probably top-normal. Thoracic aorta unfolded. OSSEOUS STRUCTURES: No significant abnormalities. VISUALIZED UPPER ABDOMEN: Normal. OTHER FINDINGS: None. IMPRESSION: Small bilateral pleural effusions -right greater than left. Probable bilateral skin folds -however that on the left is more indeterminate in appearance. To exclude the left pneumothorax along with left skin folds a repeat upright frontal chest x-ray less rotated is recommended. The current chest x-ray appearance favoring bilateral skin folds were called up to the floor and given to the nurse My at 12:25 on 01/25/2018. It was also however stated that the possibility of a small left pneumothorax cannot be entirely excluded in addition to the presence of left skin folds and additional imaging - another upright chest x-ray with less rotation is recommended to further evaluate this possibility. Comments: -a chest without contrast study 01/20/2018 mentions to left lung bases which were apparently concerning for malignancy. The vague opacities on the current chest x-ray are probably less conspicuous chest x-ray correlates to the
--- NOTE | 2018-01-25 13:24 | RAD ---
Date of service: 01/25/2018 HISTORY: f/u as per - previous xray ? ptx COMPARISON: 01/25/2018 at 11:40 hours FINDINGS: LUNGS: Shallow lung volumes- the study is again rotated towards the right less so than before. The prior appearance to the left lateral of tissue edge believe more compatible with skin folds is supported per this exam no left-sided pneumothorax is seen. The current appearance of the right lateral hemithorax is concerning for small lateral right pneumothorax. The reason for this is unclear. In retrospect a potential pleural reflection overlying the right upper lung zone is question on 01/25/2018 study 04/1940. On this exam-however this is not appreciated. Given the fluctuating findings and the indeterminate the findings/appearances, consider more definitive evaluation with a noncontrast CT chest exam. PLEURA: The prior right pleural effusion appears less than before. Although no left pneumothorax is appreciated now. Findings are concerning for small lateral right pneumothorax. Prominent skin folds could also simulate this. However, a CT noncontrast chest exam is recommended for definitive analysis given the fluctuating of appearances an indeterminate potential significance of this CARDIOVASCULAR: Probably top-normal. Thoracic aorta unfolded. OSSEOUS STRUCTURES: No significant abnormalities. VISUALIZED UPPER ABDOMEN: Normal. OTHER FINDINGS: Possible hiatal hernia. IMPRESSION: With this additional study no left pneumothorax is a suggested or appreciated. However findings are now indeterminate regarding a small possible right pneumothorax. A noncontrast CT chest exam is recommended to clarify . This was directly discussed with again the nurse taking care this patient My Smith on 01/25/2018 at 1:20 p.m.
[2018-01-25] MEDS ORDERED: ceFAZolin 1 GM in Sodium Chloride 0.9% 100 ML IVPB ONE (14:00)
[2018-01-25 14:36] LABS: INR 1.2
[2018-01-25 14:39] LABS: PARTIAL THROMBOPLASTIN TIME 34.4 Seconds (25.6-37.1)
--- NOTE | 2018-01-25 15:55 | CP.PCM.PN ---
Subjective - Date & Time of Evaluation Date of Evaluation: 01/25/18 Time of Evaluation: 10:40 - Subjective Subjective: F/U PNA eyes open, non verbal Objective - Vital Signs/Intake and Output Vital Signs (last 24 hours): Temp Pulse Resp BP Pulse Ox 97.9 F 99 H 18 119/80 100 01/25/18 15:46 01/25/18 15:46 01/25/18 15:46 01/25/18 15:46 01/25/18 15:46 - Medications Medications: Current Medications Albuterol/Ipratropium (Duoneb 3 Mg/0.5 Mg (3 Ml) Ud) 3 ml INH RTID ELIECER Last Admin: 01/25/18 13:29 Dose: 3 ml Ceftriaxone Sodium 1 gm/ (Sodium Chloride) 100 mls @ 100 mls/hr IVPB DAILY ELIECER PRN Reason: Protocol Last Admin: 01/25/18 08:32 Dose: 100 mls/hr Azithromycin 500 mg/ Sodium (Chloride) 250 mls @ 250 mls/hr IVPB DAILY ELIECER PRN Reason: Protocol Last Admin: 01/25/18 08:33 Dose: 250 mls/hr Insulin Human Regular (Humulin R) 0 units SC ACCU-CHECK ELIECER PRN Reason: Protocol Last Admin: 01/25/18 11:33 Dose: Not Given - Labs Labs: 01/24/18 04:20 01/25/18 13:44 PT 13.0 Seconds (9.8-13.1) 01/25/18 13:44 INR 1.2 01/25/18 13:44 APTT 34.4 Seconds (25.6-37.1) 01/25/18 13:44 - Constitutional Appears: Chronically Ill - Head Exam Head Exam: NORMAL INSPECTION - Eye Exam Eye Exam: PERRL - ENT Exam ENT Exam: Normal Exam - Neck Exam Neck Exam: Normal Inspection - Respiratory Exam Respiratory Exam: Decreased Breath Sounds (at bases) - Cardiovascular Exam Cardiovascular Exam: REGULAR RHYTHM - GI/Abdominal Exam GI & Abdominal Exam: Soft, Normal Bowel Sounds - Exam Additional comments: [place] catheter in place - Extremities Exam Additional comments: Contracted all extremities - Back Exam Additional comments: Pressure ulcer unstagable - Neurological Exam Additional comments: Open eyes to verbal and tactile stimuli, non verbal, unable to follows commands , generalized weakness. - Psychiatric Exam Additional comments: Unable to assess - Skin Skin Exam: Normal Color, Warm Assessment and Plan (1) Pneumonia Status: Acute (2) Dehydration with hypernatremia Status: Resolved (3) Dementia Status: Chronic (4) Diabetes mellitus Status: Chronic (5) Hypokalemia Status: Resolved - Assessment and Plan (Free Text) Plan: continue Zithromax, Rocephin, DuoNeb, K replacement, f/u K, Pt, PTT, INR , CT Chest, ABG
[2018-01-25 20:30] LABS: ABG ALLEN TEST YES; ARTERIAL BLOOD GAS HCO3 26.4 mmol/L (21-28); ARTERIAL BLOOD GAS HEMOGLOBIN 9.8 g/dL (11.7-17.4); ARTERIAL BLOOD GAS O2 CAPACITY 13.5 mL/dL (16-24); ARTERIAL BLOOD GAS O2 CONTENT 13.3 ML/dL (15-23); ARTERIAL BLOOD GAS O2 SAT 98.5 % (95-98); ARTERIAL BLOOD GAS PCO2 33 mm/Hg (35-45); ARTERIAL BLOOD GAS PH 7.49 (7.35-7.45); ARTERIAL BLOOD GAS PO2 82 mm/Hg (80-100); ARTERIAL BLOOD GAS TCO2 26.1 mmol/L (22-28)
[2018-01-26 06:23] LABS: CALCIUM 8.2 mg/dL (8.4-10.2); GFR AFRICAN-AMERICAN > 60; GFR NON-AFRICAN AMERICAN > 60
[2018-01-26 06:55] LABS: BLOOD UREA NITROGEN < 2 mg/dl (9-20)
[2018-01-26] MEDS: Albuterol-Ipratrop 3 mg / 0.5 (3 ml) UD INH SCH ×3 (08:04→19:36)
[2018-01-26] MEDS: Insulin Regular 100 units/ml SC SCH ×4 (08:19→22:02)
[2018-01-26] MEDS: Azithromycin 500 MG in Sodium Chloride 0.9% 250 ML IVPB SCH (08:29)
[2018-01-26] MEDS: Potassium Chl 20 mEq in D5-NS 1,000 ML IV SCH (08:32)
--- NOTE | 2018-01-26 09:28 | CARD ---
APPROVED REPORT Date of service: 01/26/2018 EKG Measurement Heart [id number] <Conclusion> Normal sinus rhythm Normal ECG
[2018-01-26 10:20] LABS: HEMOGLOBIN 10.2 g/dL (12.0-18.0); MEAN CELL VOLUME 86.1 fl (80.0-94.0); MEAN CORPUSCULAR HEMOGLOBIN 29.4 pg (27.0-31.0); MEAN CORPUSCULAR HGB CONC 34.1 g/dL (33.0-37.0); RBC 3.48 Mil/uL (4.40-5.90); RED CELL DISTRIBUTION WIDTH 16.6 % (11.5-14.5); WHITE BLOOD COUNT 9.3 K/uL (4.8-10.8)
--- NOTE | 2018-01-26 10:22 | CT ---
Date of service: 01/25/2018 PROCEDURE: CT Chest without contrast HISTORY: Follow-up pneumonia, questionable pneumothorax. COMPARISON: 01/20/2018. CT thorax TECHNIQUE: Contiguous axial images were obtained through the chest without intravenous contrast enhancement. Sagittal and coronal reconstructions were performed. Radiation dose (DLP): 181.89 mGy-cm. This CT exam was performed using one or more of the following dose reduction techniques: Automated exposure control, adjustment of the mA and/or kV according to patient size, and/or use of iterative reconstruction technique. FINDINGS: LUNGS: Compressive atelectasis both lower lobes related to bilateral pleural effusions. Additional pulmonary nodules adjacent to fissure on the left periphery left lower lobe and smaller nodular densities in the right upper lobe. MEDIASTINUM: Unremarkable thoracic aorta. No aneurysm. Normal sized heart. Main pulmonary artery unremarkable. No vascular congestion. No lymphadenopathy. PLEURA: Increasing bilateral pleural effusions included right pleural effusion which tracks along the major fissure. BONES: No fracture. No destructive lesion. UPPER ABDOMEN: Grossly unremarkable. OTHER FINDINGS: None. IMPRESSION: Increasing bilateral pleural effusions and associated compressive atelectasis. Stable more peripheral pulmonary nodular densities. Concordant results (preliminary interpretation) provided by [employer]. Procedure Completed: 19:12 Preliminary ([facility]) Report: Dictated and Authenticated: 19:47 Final Interpretation: 10:20. January 26, 2018.
[2018-01-26 10:37] LABS: ABG ALLEN TEST YES; ARTERIAL BLOOD GAS HCO3 26.6 mmol/L (21-28); ARTERIAL BLOOD GAS HEMOGLOBIN 12.8 g/dL (11.7-17.4); ARTERIAL BLOOD GAS O2 CAPACITY 17.7 mL/dL (16-24); ARTERIAL BLOOD GAS O2 CONTENT 17.6 ML/dL (15-23); ARTERIAL BLOOD GAS O2 SAT 99.7 % (95-98); ARTERIAL BLOOD GAS PCO2 34 mm/Hg (35-45); ARTERIAL BLOOD GAS PH 7.48 (7.35-7.45); ARTERIAL BLOOD GAS PO2 137 mm/Hg (80-100); ARTERIAL BLOOD GAS TCO2 26.3 mmol/L (22-28)
--- NOTE | 2018-01-26 10:47 | CP.PCM.PN ---
Subjective - Date & Time of Evaluation Date of Evaluation: 01/26/18 Time of Evaluation: 10:46 - Subjective Subjective: no overnight events Objective - Vital Signs/Intake and Output Vital Signs (last 24 hours): Temp Pulse Resp BP Pulse Ox 98.3 F 65 18 125/71 100 01/26/18 08:00 01/26/18 08:00 01/26/18 08:00 01/26/18 08:00 01/26/18 08:00 - Medications Medications: Current Medications Albuterol/Ipratropium (Duoneb 3 Mg/0.5 Mg (3 Ml) Ud) 3 ml INH RTID ELIECER Last Admin: 01/26/18 08:04 Dose: 3 ml Ceftriaxone Sodium 1 gm/ (Sodium Chloride) 100 mls @ 100 mls/hr IVPB DAILY ELIECER PRN Reason: Protocol Last Admin: 01/26/18 08:28 Dose: 100 mls/hr Azithromycin 500 mg/ Sodium (Chloride) 250 mls @ 250 mls/hr IVPB DAILY ELIECER PRN Reason: Protocol Last Admin: 01/26/18 08:29 Dose: 250 mls/hr Potassium Chloride/Dextrose/Sod Cl (Potassium Chl 20 Meq In D5-Ns) 1,000 mls @ 75 mls/hr IV .[id number] ELIECER Stop: 01/26/18 19:55 Last Admin: 01/26/18 08:32 Dose: 75 mls/hr Insulin Human Regular (Humulin R) 0 units SC ACCU-CHECK ELIECER PRN Reason: Protocol Last Admin: 01/26/18 08:19 Dose: Not Given - Labs Labs: 01/26/18 09:55 01/26/18 05:25 PT 13.0 Seconds (9.8-13.1) 01/25/18 13:44 INR 1.2 01/25/18 13:44 APTT 34.4 Seconds (25.6-37.1) 01/25/18 13:44 - Head Exam Head Exam: NORMOCEPHALIC - Neck Exam Neck Exam: Normal Inspection - Respiratory Exam Respiratory Exam: Clear to Ausculation Bilateral, NORMAL BREATHING PATTERN - GI/Abdominal Exam GI & Abdominal Exam: Soft, Normal Bowel Sounds Assessment and Plan - Assessment and Plan (Free Text) Assessment: 63 yo male with dysphagia/FTT peg in Am once cleared by consultants npo past midnight
--- NOTE | 2018-01-26 10:51 | CP.PCM.CON ---
History of Present Illness - History of Present Illness History of Present Illness: 63 y/o M, resident at [facility], Hx Dentia/Alzheimers, brought on 02/09/18 to ER [facility] to be evaluated gradually increased moderate SOB x 4 days [employer], no cough associated but fever and lack of appetite with no relief of symptoms. Hx by Custodial. Worsening symptom: Found with PNA on Chest X-R while in NH. Aggravated factor: Limited medical Hx. Non verbal baseline. No: Chills, n/v/d, abdominal pain, syncope, fall/trauma, CP, palpitations, sick contact. CXR: + bibasilar infiltrates R>L. Pt is scheduled for PEG EKG: normal Labs: WNL Past Patient History - Past Medical History & Family History Past Medical History?: Yes - Past Social History Smoking Status: Never Smoked Alcohol: None Drugs: Denies Home Situation {Lives}: Custodial - CARDIAC Hx Cardiac Disorders: Yes Hx Hypertension: Yes - PULMONARY Hx Respiratory Disorders: No - NEUROLOGICAL Hx Neurological Disorder: Yes Hx Alzheimer's Disease: Yes Hx Dementia: Yes - HEENT Hx HEENT Problems: No - RENAL Hx Chronic Kidney Disease: No - ENDOCRINE/METABOLIC Hx Endocrine Disorders: Yes Hx Diabetes Mellitus Type 2: Yes - HEMATOLOGICAL/ONCOLOGICAL Hx Blood Disorders: No Hx AIDS: No Hx Human Immunodeficiency Virus (HIV): No - INTEGUMENTARY Hx Dermatological Problems: No - MUSCULOSKELETAL/RHEUMATOLOGICAL Hx Musculoskeletal Disorders: No Hx Falls: No - GASTROINTESTINAL Hx Gastrointestinal Disorders: No - GENITOURINARY/GYNECOLOGICAL Hx Genitourinary Disorders: Yes Hx Incontinence: Yes - PSYCHIATRIC Hx Psychophysiologic Disorder: Yes Hx Anxiety: Yes Hx Substance Use: No - SURGICAL HISTORY Hx Surgeries: No (UNKNOWN) - ANESTHESIA Hx Anesthesia: No (UNKNOWN) Meds Allergies/Adverse Reactions: Allergies Allergy/AdvReac Type Severity Reaction Status Date / Time No Known Allergies Allergy Verified 01/19/18 17:39 - Medications Medications: Current Medications Albuterol/Ipratropium (Duoneb 3 Mg/0.5 Mg (3 Ml) Ud) 3 ml INH RTID ELIECER Last Admin: 01/26/18 08:04 Dose: 3 ml Ceftriaxone Sodium 1 gm/ (Sodium Chloride) 100 mls @ 100 mls/hr IVPB DAILY ELIECER PRN Reason: Protocol Last Admin: 01/26/18 08:28 Dose: 100 mls/hr Azithromycin 500 mg/ Sodium (Chloride) 250 mls @ 250 mls/hr IVPB DAILY [facility] PRN Reason: Protocol Last Admin: 01/26/18 08:29 Dose: 250 mls/hr Potassium Chloride/Dextrose/Sod Cl (Potassium Chl 20 Meq In D5-Ns) 1,000 mls @ 75 mls/hr IV .[id number] ELIECER Stop: 01/26/18 19:55 Last Admin: 01/26/18 08:32 Dose: 75 mls/hr Insulin Human Regular (Humulin R) 0 units SC ACCU-CHECK ELIECER PRN Reason: Protocol Last Admin: 01/26/18 08:19 Dose: Not Given Physical Exam - Constitutional Appears: Confused - Respiratory Exam Respiratory Exam: NORMAL BREATHING PATTERN - Cardiovascular Exam Cardiovascular Exam: REGULAR RHYTHM Results - Vital Signs Recent Vital Signs: Last Vital Signs Temp 98.3 F 01/26/18 08:00 Pulse 65 01/26/18 08:00 Resp 18 01/26/18 08:00 BP 125/71 01/26/18 08:00 Pulse Ox 100 01/26/18 08:00 - Labs Result Diagrams: 01/26/18 09:55 01/26/18 05:25 Labs: Laboratory Results - last 24 hr 01/25/18 01/25/18 01/25/18 11:07 13:44 13:44 WBC RBC Hgb Hct MCV MCH MCHC RDW Plt Count PT 13.0 INR 1.2 APTT 34.4 pCO2 pO2 HCO3 ABG pH ABG Total CO2 ABG O2 Saturation ABG O2 Content ABG Base Excess ABG Hemoglobin ABG Carboxyhemoglobin POC ABG HHb (Measured) ABG Methemoglobin ABG O2 Capacity Armen Test A-a O2 Difference Hgb O2 Saturation FiO2 Sodium Potassium 3.6 Chloride Carbon Dioxide Anion Gap BUN Creatinine Est GFR ( Amer) Est GFR (Non-Af Amer) POC Glucose (mg/dL) 123 H Random Glucose Calcium 01/25/18 01/25/18 01/25/18 16:00 20:22 21:17 WBC RBC Hgb Hct MCV MCH MCHC RDW Plt Count PT INR APTT pCO2 33 L pO2 82 HCO3 26.4 ABG pH 7.49 H ABG Total CO2 26.1 ABG O2 Saturation 98.5 H ABG O2 Content 13.3 L ABG Base Excess 1.9 ABG Hemoglobin 9.8 L ABG Carboxyhemoglobin 1.5 POC ABG HHb (Measured) 1.5 ABG Methemoglobin 1.6 ABG O2 Capacity 13.5 L Armen Test Yes A-a O2 Difference 26.0 Hgb O2 Saturation 95.5 FiO2 21.0 Sodium Potassium Chloride Carbon Dioxide Anion Gap BUN Creatinine Est GFR ( Amer) Est GFR (Non-Af Amer) POC Glucose (mg/dL) 113 H 112 H Random Glucose Calcium 01/26/18 01/26/18 01/26/18 05:15 05:25 08:32 WBC RBC Hgb Hct MCV MCH MCHC RDW Plt Count PT INR APTT pCO2 34 L pO2 137 H HCO3 26.6 ABG pH 7.48 H ABG Total CO2 26.3 ABG O2 Saturation 99.7 H ABG O2 Content 17.6 ABG Base Excess 2.1 ABG Hemoglobin 12.8 ABG Carboxyhemoglobin 1.4 POC ABG HHb (Measured) 0.3 ABG Methemoglobin 1.6 ABG O2 Capacity 17.7 Armen Test Yes A-a O2 Difference 49.0 Hgb O2 Saturation 96.7 FiO2 32.0 Sodium 142 Potassium 3.6 Chloride 110 H Carbon Dioxide 25 Anion Gap 11 BUN < 2 L Creatinine 0.4 L Est GFR ( Amer) > 60 Est GFR (Non-Af Amer) > 60 POC Glucose (mg/dL) 120 H Random Glucose 120 H Calcium 8.2 L 01/26/18 09:55 WBC 9.3 RBC 3.48 L Hgb 10.2 L Hct 30.0 L MCV 86.1 MCH 29.4 MCHC 34.1 RDW 16.6 H Plt Count 338 PT INR APTT pCO2 pO2 HCO3 ABG pH ABG Total CO2 ABG O2 Saturation ABG O2 Content ABG Base Excess ABG Hemoglobin ABG Carboxyhemoglobin POC ABG HHb (Measured) ABG Methemoglobin ABG O2 Capacity Armen Test A-a O2 Difference Hgb O2 Saturation FiO2 Sodium Potassium Chloride Carbon Dioxide Anion Gap BUN Creatinine Est GFR ( Amer) Est GFR (Non-Af Amer) POC Glucose (mg/dL) Random Glucose Calcium Assessment & Plan (1) Dehydration with hypernatremia Assessment and Plan: The pt is cleared for PEG insertion Status: Resolved Priority: High (2) Pneumonia Status: Acute Priority: High (3) Dementia Status: Chronic Priority: High (4) Diabetes mellitus Status: Chronic Priority: Medium (5) Aphasia Status: Acute
--- NOTE | 2018-01-26 14:55 | CARD ---
APPROVED REPORT Date of service: 01/26/2018 EXAM: Two-dimensional and M-mode echocardiogram with Doppler and color Doppler. Other Information Quality : GoodRhythm : NSR 2D DIMENSIONS IVSd0.99 (0.7-1.1cm)LVDd4.10 (3.9-5.9cm) LVOT Diameter2.18 (1.8-2.4cm)PWd0.75 (0.7-1.1cm) IVSs0.96 (0.8-1.2cm)LVDs3.17 (2.5-4.0cm) FS (%) 22.6 %PWs0.84 (0.8-1.2cm) M-Mode DIMENSIONS Left Atrium (MM)2.78 (2.5-4.0cm)Aortic Root3.37 (2.2-3.7cm) Aortic Cusp Exc.1.62 (1.5-2.0cm)PWd0.82 (0.7-1.1cm) IVSs1.00 cmFS (%) 30 % PWs1.13 cm Aortic Valve AoV Peak Eczmlvao009.6cm/sAoV VTI18.9cmAO Peak GR.5mmHg LVOT Peak Mcnuhyta96.9cm/sLVOT VTI15.23cmAO Mean GR.3mmHg MELANIA (VMAX)2.74qx3WDE (VTI)2.17cm2 Mitral Valve MV E Deletobb66.9cm/sMV DECEL [id number] A Dhvoitkn30.9cm/s MV NWB40ezQ/A ratio0.9MVA (PHT)2.91cm2 TDI Lateral E' Peak V7.41cm/sMedial E' Peak V5.95cm/sE/Lateral E'5.9 E/Medial E'7.4 Pulmonary Valve PV Peak Dgvldyfj45.4cm/s LEFT VENTRICLE The left ventricle is normal size. There is normal left ventricular wall thickness. The left ventricular ejection fraction is within the normal range. The Ejection Fraction is 55-60%. No regional wall motion abnormalities noted.. The left ventricular diastolic function is normal. No left ventricle thrombus noted on this study. There is no ventricular septal defect visualized. There is no mass noted in the left ventricle. RIGHT VENTRICLE The right ventricle is normal size. There is normal right ventricular wall thickness. The right ventricular systolic function is normal. ATRIA The left atrium size is normal. The right atrium size is normal. The interatrial septum is intact with no evidence for an atrial septal defect. AORTIC VALVE The aortic valve is normal in structure. No aortic regurgitation is present. There is no aortic valvular stenosis. MITRAL VALVE The mitral valve is normal in structure. There is no mitral valve stenosis. There is mild mitral valve regurgitation noted. TRICUSPID VALVE The tricuspid valve is normal in structure. There is no tricuspid valve regurgitation noted. PULMONIC VALVE The pulmonary valve is normal in structure. There is no pulmonic valvular regurgitation. GREAT VESSELS The aortic root is normal in size. The ascending aorta is normal in size. The pulmonary artery is normal. The IVC is normal in size and collapses >50% with inspiration. PERICARDIAL EFFUSION There is no pericardial effusion. <Conclusion> Mild mitral insufficiency Otherwise normal transthoracic echocardiogram. The Ejection Fraction is 55-60%.
--- NOTE | 2018-01-26 15:42 | CP.PCM.PN ---
Subjective - Date & Time of Evaluation Date of Evaluation: 01/26/18 Time of Evaluation: 11:10 - Subjective Subjective: F/U PNA awake, non verbal, not following commands Objective - Vital Signs/Intake and Output Vital Signs (last 24 hours): Temp Pulse Resp BP Pulse Ox 96.9 F L 92 H 18 136/89 100 01/26/18 12:35 01/26/18 12:35 01/26/18 12:35 01/26/18 12:35 01/26/18 12:35 - Medications Medications: Current Medications Albuterol/Ipratropium (Duoneb 3 Mg/0.5 Mg (3 Ml) Ud) 3 ml INH RTID [facility] Last Admin: 01/26/18 13:41 Dose: 3 ml Ceftriaxone Sodium 1 gm/ (Sodium Chloride) 100 mls @ 100 mls/hr IVPB DAILY [facility] PRN Reason: Protocol Last Admin: 01/26/18 08:28 Dose: 100 mls/hr Azithromycin 500 mg/ Sodium (Chloride) 250 mls @ 250 mls/hr IVPB DAILY [facility] PRN Reason: Protocol Last Admin: 01/26/18 08:29 Dose: 250 mls/hr Potassium Chloride/Dextrose/Sod Cl (Potassium Chl 20 Meq In D5-Ns) 1,000 mls @ 75 mls/hr IV .[id number] [facility] Stop: 01/26/18 19:55 Last Admin: 01/26/18 08:32 Dose: 75 mls/hr Insulin Human Regular (Humulin R) 0 units SC ACCU-CHECK [facility] PRN Reason: Protocol Last Admin: 01/26/18 13:34 Dose: Not Given - Labs Labs: 01/26/18 09:55 01/26/18 05:25 PT 13.0 Seconds (9.8-13.1) 01/25/18 13:44 INR 1.2 01/25/18 13:44 APTT 34.4 Seconds (25.6-37.1) 01/25/18 13:44 - Constitutional Appears: Chronically Ill - Head Exam Head Exam: NORMAL INSPECTION - Eye Exam Eye Exam: PERRL - ENT Exam ENT Exam: Normal Exam - Neck Exam Neck Exam: Normal Inspection - Respiratory Exam Respiratory Exam: Decreased Breath Sounds (at bases) - Cardiovascular Exam Cardiovascular Exam: REGULAR RHYTHM - GI/Abdominal Exam GI & Abdominal Exam: Soft, Normal Bowel Sounds - Exam Additional comments: [place] catheter in place - Extremities Exam Additional comments: Contracted all extremities - Back Exam Additional comments: Pressure ulcer unstagable - Neurological Exam Neurological Exam: Awake Additional comments: Non verbal, unable to follows commands,generalized weakness. - Psychiatric Exam Additional comments: Non verbal. - Skin Skin Exam: Normal Color, Warm Assessment and Plan (1) Pneumonia Status: Acute (2) Dehydration with hypernatremia Status: Resolved (3) Dementia Status: Chronic (4) Diabetes mellitus Status: Chronic (5) Hypokalemia Status: Acute - Assessment and Plan (Free Text) Plan: continue DuoNeb, Rocephin, Zithromax, K replacement, for PEG in am, pending Cardiac clearance
--- NOTE | 2018-01-26 21:54 | CON ---
Copied To: Vinod Linton MD/ PhD Attending MD: Vinod Linton MD/ PhD DATE: 01/24/2018 REASON FOR CONSULTATION: Dysphagia. HISTORY OF PRESENT ILLNESS: This is a pleasant 63-year-old man with dementia, hypertension, brought up with decreased appetite and fever. GI essentially was called for evaluation for possible placement of PEG tube. Patient's clinical history obtained and placed in the chart by staff. Currently, the patient is lying in bed comfortably, in no apparent distress. PAST MEDICAL HISTORY: As above. PAST SURGICAL HISTORY: As above. MEDICATIONS: Have been reviewed. REVIEW OF SYSTEMS: All other systems have been obtained. PHYSICAL EXAMINATION: VITAL SIGNS: Here in the hospital grossly unremarkable. GENERAL: This is a pleasant elderly appearing male, lying in bed comfortably, in no apparent distress. HEENT: Head: Normocephalic and atraumatic. Eyes: Pupils are equal, round, and reactive to light bilaterally. No conjunctival pallor or icterus. NECK: Supple. Normal range of motion. No lymphadenopathy appreciated. LUNGS: Coarse breath sounds bilaterally. HEART: S1 and S2. Regular rate and rhythm. No murmur appreciated. ABDOMEN: Soft and nontender. Bowel sounds present. No rebound. No guarding. RECTAL: Deferred. EXTREMITIES: Pulses present bilaterally. contracted. NEURO: A and O x1. Responds to pain. LABORATORY DATA: All labs and radiology have been reviewed. Labs include WBC of 7.7, hemoglobin 9.1, hematocrit of 27.3, platelet count is normal. Potassium is 2.4, being repleted. ASSESSMENT AND PLAN: This is a 63-year-old male with dysphagia, failure to thrive. Plan for feeding tube once the potassium is corrected. We will await clearance. Thank you for the consult. Vinod Linton MD/ PhD
[2018-01-27 05:51] LABS: BLOOD UREA NITROGEN 2 mg/dl (9-20); CALCIUM 8.5 mg/dL (8.4-10.2); GFR AFRICAN-AMERICAN > 60; GFR NON-AFRICAN AMERICAN > 60
[2018-01-27] MEDS: Albuterol-Ipratrop 3 mg / 0.5 (3 ml) UD INH SCH ×3 (07:50→19:21)
[2018-01-27] MEDS: Insulin Regular 100 units/ml SC SCH ×4 (07:59→22:40)
[2018-01-27] MEDS: Azithromycin 500 MG in Sodium Chloride 0.9% 250 ML IVPB SCH (08:05)
[2018-01-27] MEDS: Potassium Chl 20 mEq in D5-NS 1,000 ML IV SCH (08:52)
[2018-01-27] MEDS ORDERED: Lactated Ringer's 500 ML IV ONE (10:28)
[2018-01-27] MEDS ORDERED: ceFAZolin IV 1 gm in Dextrose 1 GM/50 ML BAG IVPB ONE (10:30)
[2018-01-27] MEDS ORDERED: Midazolam 2 MG/2 ML VIAL ONE (10:46)
[2018-01-27] MEDS ORDERED: Propofol 10 mg/ml Inj (20 ML) ONE (10:46)
[2018-01-27] MEDS ORDERED: Benzocaine/Butamben/Tetracai 14-2-2% TOP Spray TOP ONE (10:47)
[2018-01-27] MEDS ORDERED: Etomidate 20 mg/10ml Inj IV ONE (11:02)
[2018-01-27] MEDS ORDERED: Esmolol 100 mg/10ml Inj IV ONE (11:12)
--- NOTE | 2018-01-27 14:09 | CP.PCM.PN ---
Subjective - Date & Time of Evaluation Date of Evaluation: 01/27/18 Time of Evaluation: 12:30 - Subjective Subjective: F/U PNA awake, non verbal, not following commands Objective - Vital Signs/Intake and Output Vital Signs (last 24 hours): Temp Pulse Resp BP Pulse Ox 97.3 F L 79 17 133/83 100 01/27/18 13:21 01/27/18 13:21 01/27/18 13:21 01/27/18 13:21 01/27/18 13:21 Intake and Output: 01/27/18 01/27/18 06:59 18:59 Intake Total 160 Balance 160 - Medications Medications: Current Medications Albuterol/Ipratropium (Duoneb 3 Mg/0.5 Mg (3 Ml) Ud) 3 ml INH RTID [facility] Last Admin: 01/27/18 13:32 Dose: 3 ml Ceftriaxone Sodium 1 gm/ (Sodium Chloride) 100 mls @ 100 mls/hr IVPB DAILY [facility] PRN Reason: Protocol Last Admin: 01/27/18 08:04 Dose: 100 mls/hr Azithromycin 500 mg/ Sodium (Chloride) 250 mls @ 250 mls/hr IVPB DAILY [facility] PRN Reason: Protocol Last Admin: 01/27/18 08:05 Dose: 250 mls/hr Potassium Chloride/Dextrose/Sod Cl (Potassium Chl 20 Meq In D5-Ns) 1,000 mls @ 75 mls/hr IV .[id number] [facility] Stop: 01/28/18 08:08 Last Admin: 01/27/18 08:52 Dose: 75 mls/hr Insulin Human Regular (Humulin R) 0 units SC ACCU-CHECK [facility] PRN Reason: Protocol Last Admin: 01/27/18 12:08 Dose: Not Given - Labs Labs: 01/26/18 09:55 01/27/18 05:20 PT 13.0 Seconds (9.8-13.1) 01/25/18 13:44 INR 1.2 01/25/18 13:44 APTT 34.4 Seconds (25.6-37.1) 01/25/18 13:44 - Constitutional Appears: Chronically Ill - Eye Exam Eye Exam: EOMI - ENT Exam ENT Exam: Normal Exam - Neck Exam Neck Exam: Normal Inspection - Respiratory Exam Respiratory Exam: Decreased Breath Sounds (at bases) - Cardiovascular Exam Cardiovascular Exam: REGULAR RHYTHM - GI/Abdominal Exam GI & Abdominal Exam: Soft, Normal Bowel Sounds Additional comments: PEG tube - Exam Additional comments: Cath in place - Extremities Exam Additional comments: Contracted all extremities. - Back Exam Additional comments: Pressure ulcer unstagable - Neurological Exam Neurological Exam: Awake Additional comments: Non verbal, unable to follows commands, generalized weakness. - Psychiatric Exam Additional comments: Unable to assess. - Skin Skin Exam: Normal Color, Warm Assessment and Plan (1) Pneumonia Status: Acute (2) Dehydration with hypernatremia Status: Resolved (3) Dementia Status: Chronic (4) Diabetes mellitus Status: Chronic (5) Hypokalemia Status: Acute (6) Status post insertion of percutaneous endoscopic gastrostomy (PEG) tube Status: Acute - Assessment and Plan (Free Text) Plan: continue Rocephin , Zithromax, DuoNeb, K replacement and rest of treatment
[2018-01-27] MEDS ORDERED: guaiFENesin 100 mg/5 ml Syrup UD PO PRN (14:37)
[2018-01-27] MEDS ORDERED: Magnesium Hydroxide Susp 30 ml UD GT PRN (14:37)
[2018-01-27] MEDS: Multivitamin With Minerals Tab PO SCH (16:38)
[2018-01-27] MEDS ORDERED: Pravastatin Sodium 40 MG TAB PO SCH (22:00)
[2018-01-28] MEDS: Potassium Chl 20 mEq in D5-NS 1,000 ML IV SCH (02:38)
[2018-01-28] MEDS: Albuterol-Ipratrop 3 mg / 0.5 (3 ml) UD INH SCH ×2 (07:56→13:02)
[2018-01-28] MEDS: Insulin Regular 100 units/ml SC SCH (08:00)
[2018-01-28] MEDS: Multivitamin With Minerals Tab PO SCH (08:41)
[2018-01-28] MEDS: Azithromycin 500 MG in Sodium Chloride 0.9% 250 ML IVPB SCH (08:44)
[2018-01-28] MEDS ORDERED: guaiFENesin 200 mg/10 ml Syrup UD PO PRN (10:45)
[2018-01-28 13:51] VITALS: BP 146/89; PULSE 80; RESP 18; TEMP 98.3; O2SAT 95
--- NOTE | 2018-01-28 19:32 | CP.PCM.DIS ---
Provider - Provider Date of Admission: 01/19/18 19:52 Attending physician: Alpesh Ontiveros MD Diagnosis - Discharge Diagnosis (1) Pneumonia Status: Acute Priority: High (2) Dehydration with hypernatremia Status: Resolved Priority: High (3) Dementia Status: Chronic Priority: High (4) Diabetes mellitus Status: Chronic Priority: Medium (5) Hypokalemia Status: Acute (6) Status post insertion of percutaneous endoscopic gastrostomy (PEG) tube Status: Acute Hospital Course - Lab Results Lab Results: Micro Results 01/19/18 18:30 Blood-Venous Blood Culture - Final NO GROWTH AFTER 5 DAYS 01/19/18 18:30 Blood-Venous Gram Stain - Final TEST NOT PERFORMED 01/19/18 18:15 Blood-Venous Blood Culture - Final NO GROWTH AFTER 5 DAYS 01/19/18 18:15 Blood-Venous Gram Stain - Final TEST NOT PERFORMED 01/19/18 18:32 Urine,Clean Catch Urine Culture - Final No Growth (<1,000 CFU/ML) Most Recent Lab Values WBC 9.3 K/uL (4.8-10.8) 01/26/18 09:55 RBC 3.48 Mil/uL (4.40-5.90) L 01/26/18 09:55 Hgb 10.2 g/dL (12.0-18.0) L 01/26/18 09:55 Hct 30.0 % (35.0-51.0) L 01/26/18 09:55 MCV 86.1 fl (80.0-94.0) 01/26/18 09:55 MCH 29.4 pg (27.0-31.0) 01/26/18 09:55 MCHC 34.1 g/dL (33.0-37.0) 01/26/18 09:55 RDW 16.6 % (11.5-14.5) H 01/26/18 09:55 Plt Count 338 K/uL (130-400) 01/26/18 09:55 MPV 10.1 fl (7.2-11.7) 01/19/18 18:15 Neut % (Auto) 82.3 % (50.0-75.0) H 01/19/18 18:15 Lymph % (Auto) 11.9 % (20.0-40.0) L 01/19/18 18:15 Amador % (Auto) 5.2 % (0.0-10.0) 01/19/18 18:15 Eos % (Auto) 0.1 % (0.0-4.0) 01/19/18 18:15 Baso % (Auto) 0.5 % (0.0-2.0) 01/19/18 18:15 Neut # (Auto) 8.8 K/uL (1.8-7.0) H 01/19/18 18:15 Lymph # (Auto) 1.3 K/uL (1.0-4.3) 01/19/18 18:15 Amador # (Auto) 0.6 K/uL (0.0-0.8) 01/19/18 18:15 Eos # (Auto) 0.0 K/uL (0.0-0.7) 01/19/18 18:15 Baso # (Auto) 0.1 K/uL (0.0-0.2) 01/19/18 18:15 PT 13.0 Seconds (9.8-13.1) 01/25/18 13:44 INR 1.2 01/25/18 13:44 APTT 34.4 Seconds (25.6-37.1) 01/25/18 13:44 pCO2 34 mm/Hg (35-45) L 01/26/18 08:32 pO2 137 mm/Hg (80-100) H 01/26/18 08:32 HCO3 26.6 mmol/L (21-28) 01/26/18 08:32 ABG pH 7.48 (7.35-7.45) H 01/26/18 08:32 ABG Total CO2 26.3 mmol/L (22-28) 01/26/18 08:32 ABG O2 Saturation 99.7 % (95-98) H 01/26/18 08:32 ABG O2 Content 17.6 ML/dL (15-23) 01/26/18 08:32 ABG Base Excess 2.1 mmol/L (-2.0-3.0) 01/26/18 08:32 ABG Hemoglobin 12.8 g/dL (11.7-17.4) 01/26/18 08:32 ABG Carboxyhemoglobin 1.4 % (0.5-1.5) 01/26/18 08:32 POC ABG HHb (Measured) 0.3 % (0.0-5.0) 01/26/18 08:32 ABG Methemoglobin 1.6 % (0.0-3.0) 01/26/18 08:32 ABG O2 Capacity 17.7 mL/dL (16-24) 01/26/18 08:32 Armen Test Yes 01/26/18 08:32 VBG pH 7.44 (7.32-7.43) H 01/19/18 18:40 VBG pCO2 51 mmHg (40-60) 01/19/18 18:40 VBG HCO3 31.2 mmol/L 01/19/18 18:40 VBG Total CO2 36.2 mmol/L (22-28) H 01/19/18 18:40 VBG O2 Sat (Calc) 77.4 % (40-65) H 01/19/18 18:40 VBG Base Excess 8.8 mmol/L (0.0-2.0) H 01/19/18 18:40 VBG Potassium 3.9 mmol/L (3.6-5.2) 01/19/18 18:40 A-a O2 Difference 49.0 mm/Hg 01/26/18 08:32 Hgb O2 Saturation 96.7 % (95.0-98.0) 01/26/18 08:32 Sodium 162.0 mmol/L (132-148) H* 01/19/18 18:40 Chloride 122.0 mmol/L (98-107) H 01/19/18 18:40 Glucose 214 mg/dL (75-110) H 01/19/18 18:40 Lactate 1.7 mmol/L (0.7-2.1) 01/19/18 18:40 FiO2 32.0 % 01/26/18 08:32 Crit Value Called To eva Nixon md 01/19/18 18:40 Crit Value Called By Abraham vieyra 01/19/18 18:40 Crit Value Read Back Y 01/19/18 18:40 Blood Gas Notified Time 1848 01/19/18 18:40 Sodium 144 mmol/l (132-148) 01/27/18 05:20 Potassium 3.5 MMOL/L (3.6-5.0) L 01/27/18 05:20 Chloride 111 mmol/L (98-107) H 01/27/18 05:20 Carbon Dioxide 26 mmol/L (22-30) 01/27/18 05:20 Anion Gap 11 (10-20) 01/27/18 05:20 BUN 2 mg/dl (9-20) L 01/27/18 05:20 Creatinine 0.5 mg/dl (0.8-1.5) L 01/27/18 05:20 Est GFR ( Amer) > 60 01/27/18 05:20 Est GFR (Non-Af Amer) > 60 01/27/18 05:20 POC Glucose (mg/dL) 85 mg/dL (65-110) 01/27/18 05:27 Random Glucose 94 mg/dL (75-110) 01/27/18 05:20 Hemoglobin A1c 6.0 % (4.2-6.5) 01/20/18 05:23 Calcium 8.5 mg/dL (8.4-10.2) 01/27/18 05:20 Phosphorus 1.9 mg/dl (2.5-4.5) L 01/20/18 05:23 Magnesium 2.3 MG/DL (1.6-2.3) 01/19/18 18:15 Total Bilirubin 0.9 mg/dl (0.2-1.3) 01/20/18 05:23 AST 17 U/L (17-59) 01/20/18 05:23 ALT 18 U/L (21-72) L 01/20/18 05:23 Alkaline Phosphatase 71 U/L (38-126) 01/20/18 05:23 Troponin I < 0.0120 ng/mL (0.00-0.120) 01/19/18 18:15 Total Protein 6.0 G/DL (6.3-8.2) L 01/20/18 05:23 Albumin 2.9 g/dL (3.5-5.0) L D 01/20/18 05:23 Globulin 3.1 gm/dL (2.2-3.9) 01/20/18 05:23 Albumin/Globulin Ratio 0.9 (1.0-2.1) L 01/20/18 05:23 Triglycerides 150 mg/DL (0-149) H 01/20/18 05:23 Cholesterol 85 mg/dL (0-199) 01/20/18 05:23 LDL Cholesterol Direct < 30 mg/dL (0-129) 01/20/18 05:23 HDL Cholesterol 20 MG/DL (30-70) L 01/20/18 05:23 Phospholipids 162 mg/dL (151-264) 01/20/18 05:23 Lipase 58 U/L (23-300) 01/19/18 18:15 Thyroxine (T4) 6.87 ug/dl (5.5-11.0) 01/20/18 05:23 TSH 3rd Generation 0.18 mIU/ML (0.46-4.68) L 01/20/18 05:23 PTH Intact Whole Molec 43 pg/mL (14-64) 01/20/18 05:23 Venous Blood Potassium 3.9 mmol/L (3.6-5.2) 01/19/18 18:40 Urine Color Yellow (YELLOW) 01/19/18 18:32 Urine Clarity Slighty-cloudy (Clear) 01/19/18 18:32 Urine pH 5.0 (5.0-8.0) 01/19/18 18:32 Ur Specific [place] 1.030 (1.003-1.030) 01/19/18 18:32 Urine Protein 100 mg/dL (NEGATIVE) 01/19/18 18:32 Urine Glucose (UA) Neg mg/dL (Normal) 01/19/18 18:32 Urine Ketones 20 mg/dL (NEGATIVE) 01/19/18 18:32 Urine Blood Moderate (NEGATIVE) 01/19/18 18:32 Urine Nitrate Negative (NEGATIVE) 01/19/18 18:32 Urine Bilirubin Negative (NEGATIVE) 01/19/18 18:32 Urine Urobilinogen 2.0 mg/dL (0.2-1.0) 01/19/18 18:32 Ur Leukocyte Esterase Neg Bertrand/uL (Negative) 01/19/18 18:32 Urine RBC (Auto) 98 /hpf (0-3) H 01/19/18 18:32 Urine Microscopic WBC 4 /hpf (0-5) 01/19/18 18:32 Ur Squamous Epith Cells < 1 /hpf (0-5) 01/19/18 18:32 Ur L.pneumophila Ag Negative (NEGATIVE) 01/20/18 09:45 Mycoplasma pneumon IgG 1.62 (<=0.90) H 01/20/18 10:52 Mycoplasma pneumon IgM 31 U/mL (<770) 01/20/18 10:52 Discharge Exam - Head Exam Head Exam: NORMAL INSPECTION Discharge Plan - Follow Up Plan Condition: FAIR Disposition: REHAB FACILITY/REHAB UNIT Instructions: How to Care for Your PEG Tube
--- NOTE | 2018-02-01 13:54 | PQF ---
PROVIDER RESPONSE TEXT: HCAP type of pneumonia is undetermined. REVIEWER QUERY TEXT: Pneumonia Specificity Pneumonia is documented in the Medical Record. Please specify the possible type of pneumonia and the causative organism (includes probable or suspected) Such as: Type: -- Aspiration pneumonia (please also specify the aspirate) -- Bacterial (please document suspected or probable organism) -- Bronchopneumonia (please document suspected or probable organism) -- Interstitial pneumonia -- Organizing pneumonia / BOOP -- Pneumonia with influenza, soren flu, or H1N1 flu -- RSV -- Tuberculosis, pulmonary -- Viral -- Other, please specify CAP and HCAP represent the method of acquisition and not the specific type of pneumonia. The patient's Clinical Indicators include: Patient with a history of Dementia/ Alzheimers presents with increased SOB, fever and lack of appetit e. CXR while in snf: Pneumonia. CT Chest: Right lower lobe consolidation. Bilateral lower lobe nonspecific small airways disease. Po ssibly infectious or inflammatory. 2 left lung masses, 11 mm and 15 mm. Concerning for malignancy. Urine:L. Pneumophila Ag Negative, Mycoplasma Pneumon IgG 1.62, and IgM 31. Sputum CS pending Diet: Modified dysphagia Rx: GI consult for Peg placement, Rocephin, Zithromax IV Query created by: Vaishali Luciano on 01/24/2018 1:18 PM Electronically signed by: Alpesh Ontiveros MD 02/01/2018 1:51 PM
== END 2018-01-28 15:00 | DRG 194 ==
LOC: H.ER 17:29 → H.ERHOLD 19:52 → H.TEL 22:09
PROVIDERS: ADMIT Internal Medicine Pulmonary Disease; ATTEND Internal Medicine Pulmonary Disease
PROC: 0DH63UZ Insertion of Feeding Device into Stomach, Percutaneous Approach (ICD-10-PCS; principal; 2018-01-27 11:30)
DX: J18.9 Pneumonia, unspecified organism (principal); E87.0 Hyperosmolality and hypernatremia; R47.01 Aphasia; E86.0 Dehydration; E87.6 Hypokalemia; F02.80 Dementia in other diseases classified elsewhere, unspecified severity, without behavioral disturbance, psychotic disturbance, mood disturbance, and anxiety; G30.9 Alzheimer's disease, unspecified; Y95 Nosocomial condition; R62.7 Adult failure to thrive; R13.10 Dysphagia, unspecified; E11.9 Type 2 diabetes mellitus without complications; I10 Essential (primary) hypertension; F41.9 Anxiety disorder, unspecified; Z79.84 Long term (current) use of oral hypoglycemic drugs; Z79.899 Other long term (current) drug therapy

== ENCOUNTER 2018-03-04 18:30 | Inpatient (IN) | payer MEDICARE, OTHER ==
[2018-03-04 18:31] VITALS: BMI 22.4
[2018-03-04] MEDS ORDERED: Sodium Chloride 0.9% 1,000 ML IV STA (18:50)
--- NOTE | 2018-03-04 18:53 | ED PDOC ---
HPI: General Adult Time Seen by Provider: 03/04/18 18:40 Chief Complaint (Nursing): Palpitations Chief Complaint (Provider): Tachycardia History Per: EMS History/Exam Limitations: clinical condition (dementia) Onset/Duration Of Symptoms: Days (x1) Current Symptoms Are (Timing): Still Present Additional Complaint(s): 63 year old male sent by [facility] for tachycardia. As per EMS, patient had a HR of 125 and BP of 125/70 mmHg. ROS unobtainable secondary to dementia. Past Medical History Reviewed: Historical Data, Nursing Documentation, Vital Signs Vital Signs: Last Vital Signs Temp 97.5 F L 03/05/18 16:34 Pulse 68 03/05/18 16:34 Resp 16 03/05/18 16:34 BP 98/53 L 03/05/18 16:34 Pulse Ox 100 03/05/18 16:34 - Medical History PMH: Alzheimer's Disease, Anxiety, Dementia, Diabetes, HTN, Post Traumatic Stress Disorder Denies: HIV, Chronic Kidney Disease - Family History Family History: States: Unknown Family Hx - Living Arrangements Living Arrangements: [facility] - Immunization History Hx Tetanus Toxoid Vaccination: No (UNKNOWN) Hx Influenza Vaccination: No (UNKNOWN) Hx Pneumococcal Vaccination: No (UNKNOWN) - Home Medications Home Medications: Ambulatory Orders Medication Instructions Recorded Enalapril Maleate [Vasotec] 2.5 mg PEG DAILY 12/02/16 Lovastatin 40 mg PEG HS 12/02/16 metFORMIN [glucOPHAGE] 850 mg PEG BID 12/02/16 Acetaminophen [Tylenol 325mg tab] 650 mg PEG BID 01/19/18 Acetaminophen [Tylenol 325mg tab] 650 mg PEG Q4 PRN 01/19/18 Albuterol/Ipratropium [Duoneb 3 3 ml IH Q8 01/19/18 mg/0.5 mg (3 ml) UD] Ascorbic Acid [Vitamin C 500 mg 500 mg PEG DAILY 01/19/18 Tab] Bisacodyl [Dulcolax] 10 mg AL DAILY PRN 01/19/18 Donepezil [Aricept] 10 mg PEG DAILY 01/19/18 - Allergies Allergies/Adverse Reactions: Allergies Allergy/AdvReac Type Severity Reaction Status Date / Time No Known Allergies Allergy Verified 03/04/18 18:33 Review of Systems Review Of Systems: ROS cannot be obtained secondary to pt's inabilty to answer questions. (dementia) Physical Exam - Reviewed Nursing Documentation Reviewed: Yes Vital Signs Reviewed: Yes - Physical Exam Appears: Positive for: No Acute Distress Head Exam: Positive for: ATRAUMATIC, NORMAL INSPECTION, NORMOCEPHALIC Skin: Positive for: Normal Color, Warm, Dry. Negative for: Rash Eye Exam: Positive for: EOMI, Normal appearance, PERRL ENT: Positive for: Other (mucous membranes dry) Neck: Positive for: Normal, Painless ROM, Supple Cardiovascular/Chest: Positive for: Tachycardia (regular rhythm) Respiratory: Positive for: Decreased Breath Sounds (poor inspiratory effort). Negative for: Rales, Rhonchi, Wheezing, Respiratory Distress Gastrointestinal/Abdominal: Positive for: Normal Exam, Soft. Negative for: Tenderness Back: Positive for: Normal Inspection. Negative for: L CVA Tenderness, R CVA Tenderness, Vertebral Tenderness Extremity: Positive for: Other (lower extremities are contracted). Negative for : Pedal Edema Neurologic/Psych: Positive for: Alert (awake, and non-verbal) - Laboratory Results Result Diagrams: 03/05/18 04:10 03/05/18 04:10 - ECG O2 Sat by Pulse Oximetry: 99 (RA) Pulse Ox Interpretation: Normal Medical Decision Making Medical Decision Making: Initial impression: tachycardia; rule out sepsis/dehydration Plan: VBG shock panel -EKG -CMP -Troponin I -Udip -CBC -PTT/PT -CXR -NS 1L IVB -Blood culture -Wound culture -FSBS -Urinalysis -Reevaluation ----- Scribe Attestation: Documented by Alejandro Mcghee, acting as a scribe for Cecy Sin MD. Provider Scribe Attestation: All medical record entries made by the Scribe were at my direction and personally dictated by me. I have reviewed the chart and agree that the record accurately reflects my personal performance of the history, physical exam, medical decision making, and the department course for this patient. I have also personally directed, reviewed, and agree with the discharge instructions and disposition. Disposition - Clinical Impression Clinical Impression: Tachycardia, Fever - Disposition Disposition: Transfer of Care Disposition Time: 19:00 Condition: GUARDED Patient Signed Over To: Gt Bustamante
[2018-03-04 19:18] LABS: VENOUS BLOOD GAS BASE EXCESS 8.8 mmol/L (0.0-2.0); VENOUS BLOOD GAS PCO2 52 mmHg (40-60); VENOUS BLOOD GAS PO2 22 mm/Hg (30-55); VENOUS BLOOD PH 7.43 (7.32-7.43)
[2018-03-04 19:20] LABS: PROTHROMBIN TIME 10.8 Seconds (9.8-13.1)
[2018-03-04 19:21] LABS: BASO # 0.1 K/uL (0.0-0.2); BASO % 0.4 % (0.0-2.0); EOS # 0.7 K/uL (0.0-0.7); EOS % 3.3 % (0.0-4.0); HEMOGLOBIN 10.4 g/dL (12.0-18.0); LYMPH % 8.9 % (20.0-40.0); MEAN CELL VOLUME 85.6 fl (80.0-94.0); MEAN CORPUSCULAR HEMOGLOBIN 27.9 pg (27.0-31.0); MEAN CORPUSCULAR HGB CONC 32.6 g/dL (33.0-37.0); MEAN PLATELET VOLUME 7.7 fl (7.2-11.7); MONO # 0.6 K/uL (0.0-0.8); MONO % 2.8 % (0.0-10.0); NEUT # 18.8 K/uL (1.8-7.0); NEUT % 84.6 % (50.0-75.0); PLATELET COUNT 494 K/uL (130-400); RBC 3.74 Mil/uL (4.40-5.90); RED CELL DISTRIBUTION WIDTH 17.2 % (11.5-14.5); WHITE BLOOD COUNT 22.2 K/uL (4.8-10.8)
[2018-03-04 19:23] LABS: PARTIAL THROMBOPLASTIN TIME 35.7 Seconds (25.6-37.1)
[2018-03-04 19:26] LABS: ALB/GLOB RATIO 0.9 (1.0-2.1); ALBUMIN 3.5 g/dL (3.5-5.0); BLOOD UREA NITROGEN 18 mg/dl (9-20); GFR NON-AFRICAN AMERICAN > 60
[2018-03-04 19:33] LABS: ALT/SGPT 27 U/L (21-72); AST/SGOT 31 U/L (17-59)
[2018-03-04] MEDS ORDERED: Cefepime 2 GM in Sodium Chloride 0.9% 100 ML IVPB STA (19:48)
--- NOTE | 2018-03-04 19:56 | ED PDOC ---
- Laboratory Results Result Diagrams: 03/05/18 04:10 03/05/18 04:10 - ECG O2 Sat by Pulse Oximetry: 100 Medical Decision Making Medical Decision Makin Patient endorsed to me by Dr. Sin pending chest x-ray, labs, and reevaluation. 1999 Patient re-evaluated at bedside. Vitals: HR 79, BP 100/63, RR 16, Sat 100% on RA Source possibly urinary, will require straight cath Unknown source of infection at this time Will cover with broad spec ABx and admit to Telemetry Dr. Ontiveros aware Scribe Attestation: Documented by Alejandro Mcghee, acting as a scribe for tG Bustamante MD. Provider Scribe Attestation: All medical record entries made by the Scribe were at my direction and personally dictated by me. I have reviewed the chart and agree that the record accurately reflects my personal performance of the history, physical exam, medical decision making, and the department course for this patient. I have also personally directed, reviewed, and agree with the discharge instructions and disposition. Disposition - Clinical Impression Clinical Impression: Tachycardia, Fever - POA Present On Arrival: None - Disposition Disposition: Admitted as In-Patient Disposition Time: 20:00 Condition: GUARDED
[2018-03-04 19:59] LABS: BANDS 5 % (0-2); EOSINOPHIL 3 % (0-7); LYMPHOCYTE 8 % (20-50); MONOCYTE 6 % (0-10); NEUTROPHIL 78 % (42-75); TOTAL CELLS COUNTED 100
[2018-03-04 20:00] LABS: ANISOCYTOSIS SLIGHT; HYPOCHROMIC SLIGHT; PLATELET ESTIMATE SLIGHTLY INCREASED (NORMAL)
[2018-03-04] MEDS ORDERED: Sodium Chloride 0.9% 1,000 ML IV SCH ×2 (20:15→22:15)
[2018-03-04] MEDS ORDERED: Vancomycin 1 g Inj ONE (20:38)
[2018-03-04 20:57] LABS: URINE BILIRUBIN NEGATIVE (NEGATIVE); URINE BLOOD NEGATIVE (NEGATIVE); URINE CLARITY SLIGHTY-CLOUDY (Clear); URINE COLOR YELLOW (YELLOW); URINE GLUCOSE (UA) NEG (Normal); URINE LEUKOCYTE ESTERASE NEG Leu/uL (Negative); URINE PROTEIN NEGATIVE (NEGATIVE); URINE UROBILINOGEN 0.2-1.0 mg/dL (0.2-1.0)
[2018-03-05] MEDS: Albuterol-Ipratrop 3 mg / 0.5 (3 ml) UD IH SCH ×4 (00:19→17:00)
[2018-03-05] MEDS: Sodium Chloride 0.9% 1,000 ML IV SCH ×3 (00:20→16:50)
[2018-03-05 04:56] LABS: HEMOGLOBIN 8.8 g/dL (12.0-18.0); MEAN CELL VOLUME 86.5 fl (80.0-94.0); MEAN CORPUSCULAR HEMOGLOBIN 27.8 pg (27.0-31.0); MEAN CORPUSCULAR HGB CONC 32.1 g/dL (33.0-37.0); RBC 3.17 Mil/uL (4.40-5.90); RED CELL DISTRIBUTION WIDTH 17.1 % (11.5-14.5); WHITE BLOOD COUNT 16.6 K/uL (4.8-10.8)
[2018-03-05 06:01] LABS: ALB/GLOB RATIO 0.8 (1.0-2.1); ALBUMIN 2.6 g/dL (3.5-5.0); ALT/SGPT 26 U/L (21-72); AST/SGOT 17 U/L (17-59); BLOOD UREA NITROGEN 13 mg/dl (9-20); CALCIUM 7.7 mg/dL (8.4-10.2); GFR NON-AFRICAN AMERICAN > 60; HDL CHOLESTEROL 23 MG/DL (30-70)
[2018-03-05 06:09] LABS: LDL CHOLESTEROL 31 mg/dL (0-129)
[2018-03-05] MEDS ORDERED: Influenza Vaccine 18yr & older 0.5 ML/45 MCG SYR (Inactive don't use) IM ONE (06:30)
[2018-03-05 06:59] LABS: T3 UPTAKE 40.7 % (23.0-41.0); T4 8.73 ug/dl (5.5-11.0)
--- NOTE | 2018-03-05 08:45 | RAD ---
Date of service: 03/04/2018 HISTORY: Tachy COMPARISON: January 25 2018 FINDINGS: LUNGS: Single supine portable view of the chest reveals mild interval improvement aeration from prior study. Mild chronic interstitial changes and/or scarring are seen at the lung bases, greater on the right. No new appreciable alveolar infiltrate, CHF, or pneumothorax is seen. No pleural effusion is noted. PLEURA: No significant pleural effusion identified, no pneumothorax apparent. CARDIOVASCULAR: Heart is unchanged. No CHF. OSSEOUS STRUCTURES: No significant abnormalities. VISUALIZED UPPER ABDOMEN: Normal. OTHER FINDINGS: None. IMPRESSION: Mild interval improvement aeration with mild interstitial change and/or scarring at the lung bases. Lesser degree in the upper lobes.
[2018-03-05] MEDS: Cefepime 1 GM in Sodium Chloride 0.9% 100 ML IVPB SCH ×2 (09:30→21:26)
--- NOTE | 2018-03-05 15:11 | CP.PCM.HP ---
History of Present Illness - History of Present Illness History of Present Illness: CC: Tachycardia. 63 y/o M, [facility], with multiple chronic medical conditions, including Alzheimer/Dementia, last admission on 01/19/18 with Dx PNA, Pt was brought to ER [facility] [place] via EMS, for evaluation of elevated heart rate (125 ) and low BP while in NH as per EMS, on evaluation at ED BP: 85/63. Pt with no improvement and associated symptom of fever, on ER 100. F (rectal). Worsening symptoms: Critical Lab results: WBC 22.2 Hgb 10.4 (toda 8.8), Plt Count 494. Aggravated factor: Non verbal, Dementia. CXR: Chronic changes, no PNA. Present on Admission - Present on Admission Any Indicators Present on Admission: No Review of Systems - Review of Systems Systems not reviewed;Unavailable: Acuity of Condition, Dementia Past Patient History - Past Medical History & Family History Past Medical History?: Yes Pertinent Family History: Unknown - Past Social History Smoking Status: Never Smoked Alcohol: None Drugs: Denies Home Situation {Lives}: Intermediate - CARDIAC Hx Cardiac Disorders: Yes Hx Hypertension: Yes - PULMONARY Hx Respiratory Disorders: Yes Hx Pneumonia: Yes - NEUROLOGICAL Hx Neurological Disorder: Yes Hx Alzheimer's Disease: Yes Hx Dementia: Yes - HEENT Hx HEENT Problems: No - RENAL Hx Chronic Kidney Disease: No - ENDOCRINE/METABOLIC Hx Endocrine Disorders: Yes Hx Diabetes Mellitus Type 2: Yes - HEMATOLOGICAL/ONCOLOGICAL Hx Human Immunodeficiency Virus (HIV): No - INTEGUMENTARY Hx Dermatological Problems: No - MUSCULOSKELETAL/RHEUMATOLOGICAL Hx Musculoskeletal Disorders: Yes Hx Falls: Yes - GASTROINTESTINAL Hx Gastrointestinal Disorders: No - GENITOURINARY/GYNECOLOGICAL Hx Genitourinary Disorders: Yes Hx Incontinence: Yes - PSYCHIATRIC Hx Psychophysiologic Disorder: Yes Hx Anxiety: Yes Hx Post Traumatic Stress Disorder: Yes Hx Substance Use: No - SURGICAL HISTORY Hx Surgeries: No (UNKNOWN) - ANESTHESIA Hx Anesthesia: No (UNKNOWN) Meds Allergies/Adverse Reactions: Allergies Allergy/AdvReac Type Severity Reaction Status Date / Time No Known Allergies Allergy Verified 03/04/18 18:33 Physical Exam - Constitutional Appears: Chronically Ill - Head Exam Head Exam: NORMAL INSPECTION - Eye Exam Eye Exam: PERRL - ENT Exam ENT Exam: Normal Exam - Neck Exam Neck exam: Positive for: Normal Inspection - Respiratory Exam Respiratory Exam: Decreased Breath Sounds (at bases) - Cardiovascular Exam Cardiovascular Exam: REGULAR RHYTHM - GI/Abdominal Exam GI & Abdominal Exam: Normal Bowel Sounds, Soft - Extremities Exam Additional comments: Contracted b/l L/E - Back Exam Additional comments: Pressure ulcer scar - Neurological Exam Additional comments: Awake, non verbal, unable to follows commands. generalized weakness. - Psychiatric Exam Psychiatric exam: Flat Affect - Skin Skin Exam: Warm Results - Vital Signs Recent Vital Signs: Last Vital Signs Temp 97.8 F 03/05/18 13:00 Pulse 72 03/05/18 13:00 Resp 18 03/05/18 13:00 BP 93/50 L 03/05/18 13:00 Pulse Ox 97 03/05/18 13:00 ingrid Mattson - Labs Result Diagrams: 03/05/18 04:10 03/05/18 04:10 Labs: Laboratory Results - last 24 hr 03/04/18 03/04/18 03/04/18 18:50 18:52 19:05 WBC 22.2 H D RBC 3.74 L Hgb 10.4 L Hct 32.0 L MCV 85.6 MCH 27.9 MCHC 32.6 L RDW 17.2 H Plt Count 494 H D MPV 7.7 Neut % (Auto) 84.6 H Lymph % (Auto) 8.9 L [place] % (Auto) 2.8 Eos % (Auto) 3.3 Baso % (Auto) 0.4 Neut # (Auto) 18.8 H Lymph # (Auto) 2.0 [place] # (Auto) 0.6 Eos # (Auto) 0.7 Baso # (Auto) 0.1 Neutrophils % (Manual) 78 H Band Neutrophils % 5 H Lymphocytes % (Manual) 8 L Monocytes % (Manual) 6 Eosinophils % (Manual) 3 Platelet Estimate Slightly increased H Hypochromasia (manual) Slight Anisocytosis (manual) Slight PT INR APTT pO2 22 L VBG pH 7.43 VBG pCO2 52 VBG HCO3 30.4 VBG Total CO2 36.1 H VBG O2 Sat (Calc) 36.2 L VBG Base Excess 8.8 H VBG Potassium 4.3 Sodium 136.0 Chloride 105.0 Glucose 125 H Lactate 1.7 FiO2 21.0 Potassium Carbon Dioxide Anion Gap BUN Creatinine Est GFR ( Amer) Est GFR (Non-Af Amer) POC Glucose (mg/dL) 115 H Random Glucose Calcium Total Bilirubin AST ALT Alkaline Phosphatase Troponin I Total Protein Albumin Globulin Albumin/Globulin Ratio Triglycerides Cholesterol LDL Cholesterol Direct HDL Cholesterol Thyroxine (T4) T3 Uptake TSH 3rd Generation Venous Blood Potassium 4.3 Urine Color Urine Clarity Urine pH Ur Specific [place] Urine Protein Urine Glucose (UA) Urine Ketones Urine Blood Urine Nitrate Urine Bilirubin Urine Urobilinogen Ur Leukocyte Esterase Urine RBC (Auto) Urine Microscopic WBC 03/04/18 03/04/18 03/04/18 19:05 19:05 20:40 WBC RBC Hgb Hct MCV MCH MCHC RDW Plt Count MPV Neut % (Auto) Lymph % (Auto) [place] % (Auto) Eos % (Auto) Baso % (Auto) Neut # (Auto) Lymph # (Auto) [place] # (Auto) Eos # (Auto) Baso # (Auto) Neutrophils % (Manual) Band Neutrophils % Lymphocytes % (Manual) Monocytes % (Manual) Eosinophils % (Manual) Platelet Estimate Hypochromasia (manual) Anisocytosis (manual) PT 10.8 INR 1.0 APTT 35.7 pO2 VBG pH VBG pCO2 VBG HCO3 VBG Total CO2 VBG O2 Sat (Calc) VBG Base Excess VBG Potassium Sodium 138 Chloride 103 Glucose Lactate FiO2 Potassium 4.8 Carbon Dioxide 29 Anion Gap 11 BUN 18 Creatinine 0.5 L Est GFR ( Amer) > 60 Est GFR (Non-Af Amer) > 60 POC Glucose (mg/dL) Random Glucose 115 H Calcium 9.0 Total Bilirubin 0.5 AST 31 ALT 27 Alkaline Phosphatase 57 Troponin I 0.0470 Total Protein 7.4 Albumin 3.5 D Globulin 3.9 Albumin/Globulin Ratio 0.9 L Triglycerides Cholesterol LDL Cholesterol Direct HDL Cholesterol Thyroxine (T4) T3 Uptake TSH 3rd Generation Venous Blood Potassium Urine Color Yellow Urine Clarity Slighty-cloudy Urine pH 7.0 Ur Specific [place] 1.015 Urine Protein Negative Urine Glucose (UA) Neg Urine Ketones Negative Urine Blood Negative Urine Nitrate Negative Urine Bilirubin Negative Urine Urobilinogen 0.2-1.0 Ur Leukocyte Esterase Neg Urine RBC (Auto) 1 Urine Microscopic WBC 3 03/05/18 03/05/18 03/05/18 04:10 04:10 05:10 WBC 16.6 H RBC 3.17 L Hgb 8.8 L Hct 27.4 L MCV 86.5 MCH 27.8 MCHC 32.1 L RDW 17.1 H Plt Count 409 H MPV Neut % (Auto) Lymph % (Auto) [place] % (Auto) Eos % (Auto) Baso % (Auto) Neut # (Auto) Lymph # (Auto) [place] # (Auto) Eos # (Auto) Baso # (Auto) Neutrophils % (Manual) Band Neutrophils % Lymphocytes % (Manual) Monocytes % (Manual) Eosinophils % (Manual) Platelet Estimate Hypochromasia (manual) Anisocytosis (manual) PT INR APTT pO2 VBG pH VBG pCO2 VBG HCO3 VBG Total CO2 VBG O2 Sat (Calc) VBG Base Excess VBG Potassium Sodium 141 Chloride 112 H Glucose Lactate FiO2 Potassium 3.6 Carbon Dioxide 22 Anion Gap 11 BUN 13 Creatinine 0.4 L Est GFR ( Amer) > 60 Est GFR (Non-Af Amer) > 60 POC Glucose (mg/dL) 77 Random Glucose 81 Calcium 7.7 L Total Bilirubin 0.3 AST 17 D ALT 26 Alkaline Phosphatase 53 Troponin I Total Protein 5.8 L Albumin 2.6 L D Globulin 3.1 Albumin/Globulin Ratio 0.8 L Triglycerides 83 D Cholesterol 74 LDL Cholesterol Direct 31 HDL Cholesterol 23 L Thyroxine (T4) 8.73 T3 Uptake 40.7 TSH 3rd Generation 0.54 Venous Blood Potassium Urine Color Urine Clarity Urine pH Ur Specific [place] Urine Protein Urine Glucose (UA) Urine Ketones Urine Blood Urine Nitrate Urine Bilirubin Urine Urobilinogen Ur Leukocyte Esterase Urine RBC (Auto) Urine Microscopic WBC 03/05/18 03/05/18 06:48 11:07 WBC RBC Hgb Hct MCV MCH MCHC RDW Plt Count MPV Neut % (Auto) Lymph % (Auto) [place] % (Auto) Eos % (Auto) Baso % (Auto) Neut # (Auto) Lymph # (Auto) [place] # (Auto) Eos # (Auto) Baso # (Auto) Neutrophils % (Manual) Band Neutrophils % Lymphocytes % (Manual) Monocytes % (Manual) Eosinophils % (Manual) Platelet Estimate Hypochromasia (manual) Anisocytosis (manual) PT INR APTT pO2 VBG pH VBG pCO2 VBG HCO3 VBG Total CO2 VBG O2 Sat (Calc) VBG Base Excess VBG Potassium Sodium Chloride Glucose Lactate FiO2 Potassium Carbon Dioxide Anion Gap BUN Creatinine Est GFR ( Amer) Est GFR (Non-Af Amer) POC Glucose (mg/dL) 113 H 99 Random Glucose Calcium Total Bilirubin AST ALT Alkaline Phosphatase Troponin I Total Protein Albumin Globulin Albumin/Globulin Ratio Triglycerides Cholesterol LDL Cholesterol Direct HDL Cholesterol Thyroxine (T4) T3 Uptake TSH 3rd Generation Venous Blood Potassium Urine Color Urine Clarity Urine pH Ur Specific [place] Urine Protein Urine Glucose (UA) Urine Ketones Urine Blood Urine Nitrate Urine Bilirubin Urine Urobilinogen Ur Leukocyte Esterase Urine RBC (Auto) Urine Microscopic WBC reviewed J.P. - Imaging and Cardiology Chest x-ray Status: Report reviewed by me (Twila) Assessment & Plan (1) Sepsis Status: Acute Priority: High (2) Tachycardia Status: Acute Priority: High (3) Fever due to infection Status: Acute Priority: Medium (4) Dementia Status: Chronic Priority: High (5) Diabetes mellitus Status: Chronic Priority: Medium - Assessment and Plan (Free Text) Plan: F/U Blood C-S. U C-S, RBC folate, IronTIBC, Ferritin, Stool occult, Vit B 12, Eeticulocyte count, CBC/diff. EKG. Continue NC O2 2 L/M, Cefepime, Vanco, Duoneb, Vanco, Sodium Chl IV and rest of Tx. - Date & Time Date: 03/05/18 Time: 14:10
[2018-03-05 19:08] LABS: IRON 21 ug/dL (49-181)
[2018-03-05 19:17] LABS: % IRON SATURATION 9 % (20-55); TOTAL IRON BINDING CAPACITY 241 ug/dL (250-450)
[2018-03-06] MEDS: Albuterol-Ipratrop 3 mg / 0.5 (3 ml) UD IH SCH ×2 (00:15→07:45)
[2018-03-06 05:33] LABS: BASO # 0.1 K/uL (0.0-0.2); BASO % 0.7 % (0.0-2.0); EOS # 1.3 K/uL (0.0-0.7); EOS % 12.5 % (0.0-4.0); HEMOGLOBIN 8.9 g/dL (12.0-18.0); LYMPH # 1.2 K/uL (1.0-4.3); LYMPH % 10.9 % (20.0-40.0); MEAN CELL VOLUME 85.7 fl (80.0-94.0); MEAN CORPUSCULAR HEMOGLOBIN 28.4 pg (27.0-31.0); MEAN CORPUSCULAR HGB CONC 33.1 g/dL (33.0-37.0); MEAN PLATELET VOLUME 7.8 fl (7.2-11.7); MONO # 0.5 K/uL (0.0-0.8); MONO % 4.5 % (0.0-10.0); NEUT # 7.6 K/uL (1.8-7.0); NEUT % 71.4 % (50.0-75.0); RBC 3.14 Mil/uL (4.40-5.90); RED CELL DISTRIBUTION WIDTH 16.8 % (11.5-14.5); WHITE BLOOD COUNT 10.6 K/uL (4.8-10.8)
--- NOTE | 2018-03-06 06:45 | CARD ---
APPROVED REPORT Date of service: 03/04/2018 EKG Measurement Heart [id number] <Conclusion> Sinus tachycardia Left axis deviation Abnormal ECG
[2018-03-06 08:45] VITALS: RESP 18
[2018-03-06] MEDS: Cefepime 1 GM in Sodium Chloride 0.9% 100 ML IVPB SCH (09:21)
[2018-03-06 15:58] VITALS: BP 117/70; PULSE 72; TEMP 97.8; O2SAT 98
--- NOTE | 2018-03-07 20:57 | CP.PCM.DIS ---
Provider - Provider Date of Admission: 03/04/18 20:07 Attending physician: Alpesh Ontiveros MD Diagnosis - Discharge Diagnosis (1) Sepsis Status: Acute Priority: High (2) Tachycardia Status: Acute Priority: High (3) Fever due to infection Status: Acute Priority: Medium (4) Dementia Status: Chronic Priority: High (5) Diabetes mellitus Status: Chronic Priority: Medium Hospital Course - Lab Results Lab Results: Micro Results 03/04/18 19:05 Blood Blood Culture - Preliminary NO GROWTH AFTER 3 DAYS 03/04/18 19:05 Blood Blood Culture - Preliminary NO GROWTH AFTER 3 DAYS Most Recent Lab Values WBC 10.6 K/uL (4.8-10.8) 03/06/18 04:20 RBC 3.14 Mil/uL (4.40-5.90) L 03/06/18 04:20 Hgb 8.9 g/dL (12.0-18.0) L 03/06/18 04:20 Hct 26.9 % (35.0-51.0) L 03/06/18 04:20 MCV 85.7 fl (80.0-94.0) 03/06/18 04:20 MCH 28.4 pg (27.0-31.0) 03/06/18 04:20 MCHC 33.1 g/dL (33.0-37.0) 03/06/18 04:20 RDW 16.8 % (11.5-14.5) H 03/06/18 04:20 Plt Count 395 K/uL (130-400) 03/06/18 04:20 MPV 7.8 fl (7.2-11.7) 03/06/18 04:20 Neut % (Auto) 71.4 % (50.0-75.0) 03/06/18 04:20 Lymph % (Auto) 10.9 % (20.0-40.0) L 03/06/18 04:20 [place] % (Auto) 4.5 % (0.0-10.0) 03/06/18 04:20 Eos % (Auto) 12.5 % (0.0-4.0) H 03/06/18 04:20 Baso % (Auto) 0.7 % (0.0-2.0) 03/06/18 04:20 Neut # (Auto) 7.6 K/uL (1.8-7.0) H 03/06/18 04:20 Lymph # (Auto) 1.2 K/uL (1.0-4.3) 03/06/18 04:20 [place] # (Auto) 0.5 K/uL (0.0-0.8) 03/06/18 04:20 Eos # (Auto) 1.3 K/uL (0.0-0.7) H 03/06/18 04:20 Baso # (Auto) 0.1 K/uL (0.0-0.2) 03/06/18 04:20 Neutrophils % (Manual) 78 % (42-75) H 03/04/18 19:05 Band Neutrophils % 5 % (0-2) H 03/04/18 19:05 Lymphocytes % (Manual) 8 % (20-50) L 03/04/18 19:05 Monocytes % (Manual) 6 % (0-10) 03/04/18 19:05 Eosinophils % (Manual) 3 % (0-7) 03/04/18 19:05 Platelet Estimate Slightly increased (NORMAL) H 03/04/18 19:05 Hypochromasia (manual) Slight 03/04/18 19:05 Anisocytosis (manual) Slight 03/04/18 19:05 Retic Count 2.4 % (0.5-1.5) H 03/06/18 04:20 PT 10.8 Seconds (9.8-13.1) 03/04/18 19:05 INR 1.0 03/04/18 19:05 APTT 35.7 Seconds (25.6-37.1) 03/04/18 19:05 pO2 22 mm/Hg (30-55) L 03/04/18 18:52 VBG pH 7.43 (7.32-7.43) 03/04/18 18:52 VBG pCO2 52 mmHg (40-60) 03/04/18 18:52 VBG HCO3 30.4 mmol/L 03/04/18 18:52 VBG Total CO2 36.1 mmol/L (22-28) H 03/04/18 18:52 VBG O2 Sat (Calc) 36.2 % (40-65) L 03/04/18 18:52 VBG Base Excess 8.8 mmol/L (0.0-2.0) H 03/04/18 18:52 VBG Potassium 4.3 mmol/L (3.6-5.2) 03/04/18 18:52 Sodium 136.0 mmol/L (132-148) 03/04/18 18:52 Chloride 105.0 mmol/L (98-107) 03/04/18 18:52 Glucose 125 mg/dL (75-110) H 03/04/18 18:52 Lactate 1.7 mmol/L (0.7-2.1) 03/04/18 18:52 FiO2 21.0 % 03/04/18 18:52 Sodium 141 mmol/l (132-148) 03/05/18 04:10 Potassium 3.6 MMOL/L (3.6-5.0) 03/05/18 04:10 Chloride 112 mmol/L (98-107) H 03/05/18 04:10 Carbon Dioxide 22 mmol/L (22-30) 03/05/18 04:10 Anion Gap 11 (10-20) 03/05/18 04:10 BUN 13 mg/dl (9-20) 03/05/18 04:10 Creatinine 0.4 mg/dl (0.8-1.5) L 03/05/18 04:10 Est GFR ( Amer) > 60 03/05/18 04:10 Est GFR (Non-Af Amer) > 60 03/05/18 04:10 POC Glucose (mg/dL) 90 mg/dL (65-110) 03/06/18 15:42 Random Glucose 81 mg/dL (75-110) 03/05/18 04:10 Calcium 7.7 mg/dL (8.4-10.2) L 03/05/18 04:10 Iron 21 ug/dL (49-181) L 03/05/18 18:30 TIBC 241 ug/dL (250-450) L 03/05/18 18:30 % Saturation 9 % (20-55) L 03/05/18 18:30 Ferritin 141.0 ng/Ml (17.9-464) 03/06/18 04:20 Total Bilirubin 0.3 mg/dl (0.2-1.3) 03/05/18 04:10 AST 17 U/L (17-59) D 03/05/18 04:10 ALT 26 U/L (21-72) 03/05/18 04:10 Alkaline Phosphatase 53 U/L (38-126) 03/05/18 04:10 Troponin I 0.0470 ng/mL (0.00-0.120) 03/04/18 19:05 Total Protein 5.8 G/DL (6.3-8.2) L 03/05/18 04:10 Albumin 2.6 g/dL (3.5-5.0) L D 03/05/18 04:10 Globulin 3.1 gm/dL (2.2-3.9) 03/05/18 04:10 Albumin/Globulin Ratio 0.8 (1.0-2.1) L 03/05/18 04:10 Triglycerides 83 mg/DL (0-149) D 03/05/18 04:10 Cholesterol 74 mg/dL (0-199) 03/05/18 04:10 LDL Cholesterol Direct 31 mg/dL (0-129) 03/05/18 04:10 HDL Cholesterol 23 MG/DL (30-70) L 03/05/18 04:10 Vitamin B12 544 pg/mL (239-931) 03/06/18 04:20 RBC Folate 1100 ng/mL RBC (>280) 03/06/18 04:20 Thyroxine (T4) 8.73 ug/dl (5.5-11.0) 03/05/18 04:10 T3 Uptake 40.7 % (23.0-41.0) 03/05/18 04:10 TSH 3rd Generation 0.54 mIU/ML (0.46-4.68) 03/05/18 04:10 Venous Blood Potassium 4.3 mmol/L (3.6-5.2) 03/04/18 18:52 Urine Color Yellow (YELLOW) 03/04/18 20:40 Urine Clarity Slighty-cloudy (Clear) 03/04/18 20:40 Urine pH 7.0 (5.0-8.0) 03/04/18 20:40 Ur Specific [place] 1.015 (1.003-1.030) 03/04/18 20:40 Urine Protein Negative mg/dL (NEGATIVE) 03/04/18 20:40 Urine Glucose (UA) Neg mg/dL (Normal) 03/04/18 20:40 Urine Ketones Negative mg/dL (NEGATIVE) 03/04/18 20:40 Urine Blood Negative (NEGATIVE) 03/04/18 20:40 Urine Nitrate Negative (NEGATIVE) 03/04/18 20:40 Urine Bilirubin Negative (NEGATIVE) 03/04/18 20:40 Urine Urobilinogen 0.2-1.0 mg/dL (0.2-1.0) 03/04/18 20:40 Ur Leukocyte Esterase Neg [place]/uL (Negative) 03/04/18 20:40 Urine RBC (Auto) 1 /hpf (0-3) 03/04/18 20:40 Urine Microscopic WBC 3 /hpf (0-5) 03/04/18 20:40 Stool Occult Blood Negative (NEGATIVE) 03/06/18 18:33 Discharge Exam - Head Exam Head Exam: NORMAL INSPECTION Discharge Plan - Discharge Medications Prescriptions: Cefepime [Maxipime] 1 gm IV Q12 #10 vial - Follow Up Plan Condition: GUARDED Disposition: TRANSF TO SNF Instructions: Tachycardia (DC), Sepsis (DC)
== END 2018-03-06 16:35 | DRG 872 ==
LOC: H.ER 18:30 → H.ERHOLD 20:07 → H.TEL 23:03
PROVIDERS: ADMIT Internal Medicine Pulmonary Disease; ATTEND Internal Medicine Pulmonary Disease
PROC: 3E0234Z Introduction of Serum, Toxoid and Vaccine into Muscle, Percutaneous Approach (ICD-10-PCS; principal; 2018-03-05)
DX: A41.9 Sepsis, unspecified organism (principal); F02.80 Dementia in other diseases classified elsewhere, unspecified severity, without behavioral disturbance, psychotic disturbance, mood disturbance, and anxiety; G30.9 Alzheimer's disease, unspecified; R00.0 Tachycardia, unspecified; E11.9 Type 2 diabetes mellitus without complications; I10 Essential (primary) hypertension; F41.9 Anxiety disorder, unspecified; F43.10 Post-traumatic stress disorder, unspecified; Z23 Encounter for immunization; Z87.01 Personal history of pneumonia (recurrent); Z79.84 Long term (current) use of oral hypoglycemic drugs